=== PATIENT | female | born 1985 | race Caucasian/White ===

== ENCOUNTER → 2019-06-05 | Outpatient (CLI) | payer BC ==
[~2019-06-05] MED LIST: GADOBENATE DIMEGLUMINE 1 ML IV ONE; SODIUM CHLORIDE 0.9% 50ML 50 ML ONE
--- NOTE | 2019-06-05 14:51 | Diagnostic Imaging Report ---
MRI BRAIN WOW HISTORY: Pituitary tumor, prolactinoma COMPARISON: None available. TECHNIQUE: Multiplanar, multisequence MRI of the brain (including diffusion-weighted imaging) and pituitary gland was performed before and after the administration of intravenous contrast. Dynamic coronal T1 weighted images through the sella were obtained. DISCUSSION: Susceptibility artifacts from the oral cavity obscure some details. Postsurgical changes related to transsphenoidal resection are present. Mild to moderate T2 hyperintense sphenoid sinus mucosal thickening is present, eccentric to the right. The sella is otherwise preserved. The posterior pituitary T1 bright spot is not clearly identified. The pituitary gland is otherwise grossly normal in size and morphology. No definite focal sellar or suprasellar lesions are seen. The pituitary stalk is not deviated. The optic chiasm is preserved. The cavernous sinuses are normal in size and enhance symmetrically. Meckel's caves are clear. The cavernous internal carotid artery flow voids are preserved. Additional findings: T2 hyperintense right ethmoid air cell and right maxillary sinus mucosal thickening is partially imaged. IMPRESSION: 1. Postsurgical changes related to transsphenoidal resection. Nonspecific T2 hyperintense sphenoid sinus mucosal thickening, eccentric to the right. 2. Otherwise, no definite focal sellar or suprasellar lesion is seen. Signed by: Dr. Luis Manuel Carmen M.D. on 06/05/2019 2:48 PM
== END ==
LOC: MRI 10:35
PROVIDERS: ATTEND Neurological Surgery
DX: D35.2 Benign neoplasm of pituitary gland (principal)
CPT/HCPCS: 70553; A9577

== ENCOUNTER 2019-10-15 10:33 | Inpatient (IN) | payer BC ==
[~2019-10-15] VITALS: Ht 154.9 cm; Wt 60.0 kg
[2019-10-15] MEDS ORDERED: SODIUM CHLORIDE 0.9% 1000ML 1,000 ML IV STA (10:36)
[2019-10-15] MEDS ORDERED: MORPHINE SULFATE INJ 4 MG/ML INJ 1ML IV STA (10:36)
--- OUTSIDE RECORDS SUMMARY | 2019-10-15 10:37 | XMS REPORT ---
Author Author [facility] Address Unknown Phone Unavailable Care Team Providers Care Mining Helper Name Role Phone NICK ADAMS Unavailable Unavailable NICK SHAH Unavailable Unavailable Payers Payer Name Policy Type Policy Number Effective Date Expiration Date Problems This patient has no known problems. Allergies, Adverse Reactions, Alerts Allergy Name Allergy Type Status Severity Reaction(s) Onset Date Inactive Date Treating Clinician Comments Penicillins DA Active U 2016-02-27 00:00:00 morphine DA Active U 2016-02-27 00:00:00 meperidine DA Active U 2016-02-27 00:00:00 Medications This patient has no known medications. Results Test Description Test Time Test Comments Text Results Atomic Results Result Comments MRI BRAIN WOW 2019-06-05 14:40:00 [place] [address] Patient Name: KWADWO DICKINSON MR #: [id number] : 1985 Age/Sex: 34/F Req #: [id number] Adm Physician: Ordered by: NICK ADAMS MD Report #: [id number] Location: MRI Room/Bed: Procedure: [id number] MRI/MRI BRAIN WOW Exam Date: Exam Time: REPORT STATUS: Signed MRI BRAIN WOW HISTORY: Pituitary tumor, prolactinoma COMPARISON: None available. TECHNIQUE: Multiplanar, multisequence MRI of the brain (including diffusion-weighted imaging) and pituitary gland was performed before and after the administration of intravenous contrast. Dynamic coronal T1 weighted images through the sella were obtained. DISCUSSION: Susceptibility artifacts from the oral cavity obscure some details. Postsurgical changes related to transsphenoidal resection are present. Mild to moderate T2 hyperintense sphenoid sinus mucosal thickening is present, eccentric to the right. The sella is otherwise preserved. The posterior pituitary T1 bright spot is not clearly identified. The pituitary gland is otherwise grossly normal in size and morphology. No definite focal sellar or suprasellar lesions are seen. The pituitary stalk is not deviated. The optic chiasm is preserved. The cavernous sinuses are normal in size and enhance symmetrically. Meckel's caves are clear. The cavernous internal carotid artery flow voids are preserved. Additional findings: T2 hyperintense right ethmoid air cell and right maxillary sinus mucosal thickening is partially imaged. IMPRESSION: 1. Postsurgical changes related to transsphenoidal resection. Nonspecific T2 hyperintense sphenoid sinus mucosal thickening, eccentric to the right. 2. Otherwise, no definite focal sellar or suprasellar lesion is seen. Signed by: Dr. Luis Manuel Carmen M.D. on 06/05/2019 2:48 PM Dictated By: LUIS MANUEL CARMEN MD 1448 Transcribed By: CLIFFORD on 06/05/19 1448 COPY TO: NICK ADAMS MD TISSUE EXAM 2019-02-22 16:29:00 Surgical Pathology Report Case: [id number] Authorizing Provider: Nick Shah MD Collected: 02/20/2019 1647 Ord ering Location: [facility] PERIOPERATIVE Received: 02/20/2019 1653 SERVICES Pathologist: Pio Easley MD Specimens: A) - Tumor, Pituitary Tumor B) - Tumor, Inferior Pituitary Tumor C) - Tumor, Lateral Pituitary Tumor D) - Tumor, Far Lateral Pituitary Tumor A. PITUITARY GLAND, TRANSSPHENOIDAL HYPOPHYSECTOMY:PROLACTIN CELL ADENOMAADENOHYPOPHYSISB. PITUITARY GLAND, TRANSSPHENOIDAL HYPOPHYSECTOMY:PROLACTIN CELL ADENOMAADENOHYPOPHYSISC. PITUITARY GLAND, TRANSSPHENOIDAL HYPOPHYSECTOMY:PROLACTIN CELL ADENOMAADENOHYPOPHYSISNEUROHYPOPHYSISD. PITUITARY GLAND, TRANSSPHENOIDAL HYPOPHYSECTOMY:ADENOHYPOPHYSIS Signing Pathologist Direct Phone Line: [phone] signed by Pio Easley MD on 02/22/2019 at 4:29 PMEach specimen is examined in its entirety. No tumor is identified in the fourth specimen, and reticulin confirms a regular nesting pattern, typical of adenohypophysis. The first, second and third specimens contain adenoma, which is positive for prolactin immunoperoxidase stain and has irregular reticulin investment with attenuation. The third specimen also contains adenoma, but this was not present in the original frozen section. Reticulin stain of the third sp ecimen confirms that additional level sections contain an irregularly nested tumor with attenuated reticulin framework. 68177 x 4; 47084 x 4; 74516 x 4; 57931 x 2The case was received in multiple parts labeled with the patient's name, date of and accession number all of which match the information provided on the requisition slip.Part A received fresh for intraoperative consultation in a container labeled "pituitary tumor" is a 0.2 x 0.2 x 0.1 cm corado-pink hemorrhagic piece of tissue submitted entirely in cassette A1.Part B received fresh for intraoperative consultation in a container labeled "B. Inferior pituitary tumor" is a 0.2 x 0.2 x 0.1 cm piece of corado-pink hemorrhagic piece submitted entirely in cassette B1.Part C received fresh for intraoperative consultation in a container labeled "lateral pituitary tumor" are two pieces of tissue, which are corado-pink and hemorrhagic 0.2 x 0.2 x 0.2 cm and 0.1 x 0.1 x 0.1 cm, submitted entirely in cassette C1.Part D received fresh for intraoperati ve consultation in a container labeled "far lateral pituitary tumor" is a 0.3 x 0.2 x 0.2 cm piece of corado-pink hemorrhagic tissue, submitted entirely in cassette D1. EC/ewA1FS, FROZEN SECTION DIAGNOSIS, PITUITARY TUMOR: ,ADENOMA AND ADENOHYPOPHYSIS (KAH)B1FS FROZEN SECTION DIAGNOSIS, INFERIOR PITUITARY TUMOR: ADENOMA AND ADENOHYPOPHYSIS (KAH)C1FS, FROZEN SECTION DIAGNOSIS, LATERAL PITUITARY TUMOR: ADENOHYPOPHYSIS AND [id number], FROZEN SECTION DIAGNOSIS FAR LATERAL PITUITARY TUMOR; ADENOHYPOPHYSISPerformed on A-DThe interpretation of this case included the use of immunohistochemistry or special stains.Control Slides Examined: In-house known positive controls were evaluated along with the test tissue. These control slides run alongside of the patients sample show appropriate staining. Internal positive and negative controls when available are evaluated Immunohistochemistry technical testing was performed at [facility], Pathology Laboratory where it was developed and its performance characteristics were determined. It has not been cleared or approved by the U.S. Food and Drug Administration. The FDA has determined that such clearance or approval is not necessary. The test is used for clinical purposes. It should not be regarded as investigational or for research. This laboratory is certified under the Clinical Laboratory Improvement Amendments of 1988 (CLIA-88) as qualified to perform high complexity clinical laboratory testing. SODIUM 2019-02-21 10:51:00 SODIUM (BEAKER) (test hkxe=933) 142 meq/L 136-145 [id number] 05:15:00* Test Item Value Reference Range Comments PROLACTIN (BEAKER) (test geic=722) 1.39 ng/mL 5.18-26.53 CBC W/PLT COUNT & AUTO [id number] 04:48:00* Test Item Value Reference Range Comments WHITE BLOOD CELL COUNT (BEAKER) (test zouh=592) 14.6 K/ L 3.5-10.5 RED BLOOD CELL COUNT (BEAKER) (test leoq=555) 4.39 M/ L 3.93-5.22 HEMOGLOBIN (BEAKER) (test bcok=855) 13.5 GM/DL 11.2-15.7 HEMATOCRIT (BEAKER) (test tehq=038) 41.6 % 34.1-44.9 MEAN CORPUSCULAR VOLUME (BEAKER) (test crfe=133) 94.8 fL 79.4-94.8 MEAN CORPUSCULAR HEMOGLOBIN (BEAKER) (test pblp=695) 30.8 pg 25.6-32.2 MEAN CORPUSCULAR HEMOGLOBIN CONC (BEAKER) (test jehu=472) 32.5 GM/DL 32.2-35.5 RED CELL DISTRIBUTION WIDTH (BEAKER) (test kakp=654) 12.3 % 11.7-14.4 PLATELET COUNT (BEAKER) (test uwqg=282) 217 K/CU MM 150-450 MEAN PLATELET VOLUME (BEAKER) (test tkfw=691) 11.6 fL 9.4-12.3 NUCLEATED RED BLOOD CELLS (BEAKER) (test ffbl=879) 0 /100 WBC 0-0 NEUTROPHILS RELATIVE PERCENT (BEAKER) (test goen=991) 95 % LYMPHOCYTES RELATIVE PERCENT (BEAKER) (test ysck=548) 3 % MONOCYTES RELATIVE PERCENT (BEAKER) (test tgcp=930) 2 % EOSINOPHILS RELATIVE PERCENT (BEAKER) (test tmih=047) 0 % BASOPHILS RELATIVE PERCENT (BEAKER) (test wbom=354) 0 % NEUTROPHILS ABSOLUTE COUNT (BEAKER) (test ljmc=590) 13.76 K/ L 1.56-6.13 LYMPHOCYTES ABSOLUTE COUNT (BEAKER) (test kyfa=958) 0.47 K/ L 1.18-3.74 MONOCYTES ABSOLUTE COUNT (BEAKER) (test odys=523) 0.26 K/ L 0.24-0.36 EOSINOPHILS ABSOLUTE COUNT (BEAKER) (test acys=745) 0.00 K/ L 0.04-0.36 BASOPHILS ABSOLUTE COUNT (BEAKER) (test pjid=879) 0.01 K/ L 0.01-0.08 IMMATURE GRANULOCYTES-RELATIVE PERCENT (BEAKER) (test vspf=2155) 0 % 0-1 [id number] 04:41:00* Test Item Value Reference Range Comments CORTISOL, TOTAL (BEAKER) (test toil=4079) 52.5 ug/dL 3.7-19.4 BASIC METABOLIC [id number] 04:19:00* Test Item Value Reference Range Comments SODIUM (BEAKER) (test xrna=009) 144 meq/L 136-145 POTASSIUM (BEAKER) (test wams=726) 3.8 meq/L 3.5-5.1 CHLORIDE (BEAKER) (test lquh=484) 116 meq/L 98-107 CO2 (BEAKER) (test zdwo=965) 20 meq/L 22-29 BLOOD UREA NITROGEN (BEAKER) (test mknq=628) 5 mg/dL 7-21 CREATININE (BEAKER) (test tche=599) 0.59 mg/dL 0.57-1.25 GLUCOSE RANDOM (BEAKER) (test ewrj=316) 128 mg/dL 70-105 CALCIUM (BEAKER) (test djax=867) 8.2 mg/dL 8.4-10.2 EGFR (BEAKER) (test nmln=1378) 117 mL/min/1.73 sq m ESTIMATED GFR IS NOT ACCURATE CREATININE CLEARANCE IN PREDICTING GLOMERULAR FILTRATION RATE. ESTIMATED GFR IS NOT APPLICABLE FOR DIALYSIS PATIENTS. OSMOLALITY, [id number] 04:17:00* Test Item Value Reference Range Comments OSMOLALITY URINE (BEAKER) (test tibv=256) 179 mOsm/kg 40-1,400 SPECIFIC GRAVITY, [id number] 04:05:00* Test Item Value Reference Range Comments SPECIFIC GRAVITY UA (BEAKER) (test xuob=250) 1.003 1.001-1.035 BASIC METABOLIC [id number] 00:21:00* Test Item Value Reference Range Comments SODIUM (BEAKER) (test onox=762) 140 meq/L 136-145 POTASSIUM (BEAKER) (test riet=394) 3.7 meq/L 3.5-5.1 CHLORIDE (BEAKER) (test uovv=016) 115 meq/L 98-107 CO2 (BEAKER) (test bchv=421) 17 meq/L 22-29 BLOOD UREA NITROGEN (BEAKER) (test feas=670) 7 mg/dL 7-21 CREATININE (BEAKER) (test yxhz=131) 0.62 mg/dL 0.57-1.25 GLUCOSE RANDOM (BEAKER) (test fykl=169) 134 mg/dL 70-105 CALCIUM (BEAKER) (test qqyj=733) 7.5 mg/dL 8.4-10.2 EGFR (BEAKER) (test kjwu=5003) 110 mL/min/1.73 sq m ESTIMATED GFR IS NOT ACCURATE CREATININE CLEARANCE IN PREDICTING GLOMERULAR FILTRATION RATE. ESTIMATED GFR IS NOT APPLICABLE FOR DIALYSIS PATIENTS. URINALYSIS W/ [id number] 09:41:00* Test Item Value Reference Range Comments COLOR (BEAKER) (test ozfi=927) Yellow CLARITY (BEAKER) (test nmkq=540) Clear SPECIFIC GRAVITY UA (BEAKER) (test agci=682) 1.018 1.001-1.035 PH UA (BEAKER) (test yxcx=909) 5.5 5.0-8.0 PROTEIN UA (BEAKER) (test bluq=614) 20 mg/dL Negative GLUCOSE UA (BEAKER) (test yain=055) Negative Negative KETONES UA (BEAKER) (test phav=487) 10 mg/dL Negative BILIRUBIN UA (BEAKER) (test nzwl=027) Negative Negative BLOOD UA (BEAKER) (test kmqs=155) Trace Negative NITRITE UA (BEAKER) (test pxeq=304) Negative Negative LEUKOCYTE ESTERASE UA (BEAKER) (test vhix=339) Trace Negative UROBILINOGEN UA (BEAKER) (test svyc=532) 0.2 mg/dL 0.2-1.0 RBC UA (BEAKER) (test cdvb=063) 1 /HPF WBC UA (BEAKER) (test yqwv=928) 3 /HPF BACTERIA (BEAKER) (test oxxb=790) Occasional MUCUS (BEAKER) (test okla=7552) Moderate SQUAMOUS EPITHELIAL (BEAKER) (test pmzj=124) 4 /HPF SOURCE(BEAKER) (test ubdb=8723) BASIC METABOLIC [id number] 09:30:00* Test Item Value Reference Range Comments SODIUM (BEAKER) (test bauw=982) 138 meq/L 136-145 POTASSIUM (BEAKER) (test hjso=244) 3.8 meq/L 3.5-5.1 Specimen slightly hemolyzed CHLORIDE (BEAKER) (test ektd=070) 108 meq/L 98-107 CO2 (BEAKER) (test twit=048) 20 meq/L 22-29 BLOOD UREA NITROGEN (BEAKER) (test rpha=592) 9 mg/dL 7-21 CREATININE (BEAKER) (test zgrw=181) 0.57 mg/dL 0.57-1.25 Specimen slightly hemolyzed GLUCOSE RANDOM (BEAKER) (test nzdf=192) 85 mg/dL 70-105 CALCIUM (BEAKER) (test qqdq=194) 9.0 mg/dL 8.4-10.2 EGFR (BEAKER) (test pgck=4708) 121 mL/min/1.73 sq m ESTIMATED GFR IS NOT ACCURATE CREATININE CLEARANCE IN PREDICTING GLOMERULAR FILTRATION RATE. ESTIMATED GFR IS NOT APPLICABLE FOR DIALYSIS PATIENTS. CBC W/PLT COUNT & AUTO [id number] 09:22:00* Test Item Value Reference Range Comments WHITE BLOOD CELL COUNT (BEAKER) (test pbcg=071) 7.7 K/ L 3.5-10.5 RED BLOOD CELL COUNT (BEAKER) (test mjht=681) 4.48 M/ L 3.93-5.22 HEMOGLOBIN (BEAKER) (test qpqz=680) 13.8 GM/DL 11.2-15.7 HEMATOCRIT (BEAKER) (test klff=653) 41.6 % 34.1-44.9 MEAN CORPUSCULAR VOLUME (BEAKER) (test xtua=625) 92.9 fL 79.4-94.8 MEAN CORPUSCULAR HEMOGLOBIN (BEAKER) (test mngt=316) 30.8 pg 25.6-32.2 MEAN CORPUSCULAR HEMOGLOBIN CONC (BEAKER) (test xbqk=438) 33.2 GM/DL 32.2-35.5 RED CELL DISTRIBUTION WIDTH (BEAKER) (test clzx=015) 12.1 % 11.7-14.4 PLATELET COUNT (BEAKER) (test lmuc=883) 218 K/CU MM 150-450 MEAN PLATELET VOLUME (BEAKER) (test bwvg=620) 11.8 fL 9.4-12.3 NUCLEATED RED BLOOD CELLS (BEAKER) (test nopo=151) 0 /100 WBC 0-0 NEUTROPHILS RELATIVE PERCENT (BEAKER) (test rdon=657) 53 % LYMPHOCYTES RELATIVE PERCENT (BEAKER) (test vkzu=855) 29 % MONOCYTES RELATIVE PERCENT (BEAKER) (test fnzk=279) 7 % EOSINOPHILS RELATIVE PERCENT (BEAKER) (test dsuw=840) 9 % BASOPHILS RELATIVE PERCENT (BEAKER) (test abxz=930) 1 % NEUTROPHILS ABSOLUTE COUNT (BEAKER) (test hkit=582) 4.12 K/ L 1.56-6.13 LYMPHOCYTES ABSOLUTE COUNT (BEAKER) (test iikf=194) 2.26 K/ L 1.18-3.74 MONOCYTES ABSOLUTE COUNT (BEAKER) (test lbyt=021) 0.54 K/ L 0.24-0.36 EOSINOPHILS ABSOLUTE COUNT (BEAKER) (test zjml=761) 0.70 K/ L 0.04-0.36 BASOPHILS ABSOLUTE COUNT (BEAKER) (test cdzx=514) 0.07 K/ L 0.01-0.08 IMMATURE GRANULOCYTES-RELATIVE PERCENT (BEAKER) (test jtzs=7761) 0 % 0-1 [id number] 09:20:00* Test Item Value Reference Range Comments PARTIAL THROMBOPLASTIN TIME (BEAKER) (test ylad=704) 33.9 seconds 22.5-36.0 PROTHROMBIN TIME/[id number] 09:19:00* Test Item Value Reference Range Comments PROTIME (BEAKER) (test hfvo=167) 14.7 seconds 11.9-14.2 INR (BEAKER) (test winp=217) 1.2 <=5.9 Effective 11/23/2018: PT Reference Range ChangeNew: 11.9-14.2 Previous: 11.7-14. 7RECOMMENDED COUMADIN/WARFARIN INR THERAPY RANGESSTANDARD DOSE: 2.0-3.0 Include s: PROPHYLAXIS for venous thrombosis, systemic embolization; TREATMENT for venou s thrombosis and/or pulmonary embolus.HIGH RISK: Target INR is 2.5-3.5 for patie nts wiht mechanical heart valves.MR, BRAIN, [id number] 16:08:00FINAL REPORT MR, BRAIN, WITH \\T\\ WITHOUT CONTRAST INDICATION: PITUITARY MACROADENOMA TECHNIQUE: Multiplanar, multisequence MR imaging of the brain prior to and following intravenous administration of contrast. Dedicated thin slices of the sellar region in coronal and sagittal planes. Dynamic post contrast sellar imaging was performed. COMPARISON: Same day head CT FINDINGS: S ellar Region:In the right inferior aspect of the pituitary there is a T2 hyperin tense hypo-/nonenhancing lesion measuring approximately 4 mm. The sella turcica is not expanded. The infundibulum is midline. No mass effect upon the optic ashley sm. Cavernous sinuses are normal. Bilateral cavernous ICA flow voids are normal. Other Intracranial Structures: Susceptibility artifact in the anterior cranial fossa likely related to dental hardware. Scattered foci of T2 prolongation withi n the periventricular and subcortical white matter are a nonspecific finding and may be seen in normal individuals of this age group. No intracranial hemorrhage. No restricted diffusion to suggest acute infarct. No mass effect. No abnormal post-contrast enhancement. No hydrocephalus. Visualized intracranial flow voids are of normal course and caliber. Sinuses: Fluid within the right posterior eth moid air cells. Trace mastoid fluid. Orbits: Globes are intact. Calvarium \\T\\ sc alp: Unremarkable. IMPRESSION:There is a 4 mm cystic mass within the inferior ri ght aspect of the pituitary gland, likely microadenoma. No significant mass effe ct. Signed: Alissa Armijo Verified Date/Time: 02/15/2019 16:08:10 E lectronically signed by: ALISSA ARMIJO MD on 02/15/2019 04:[address], BRAIN, WITHOUT [id number] 13:43:00FINAL REPORT CT, BRAIN, WITHOUT CONTRAST INDICATION: Per chart review, patient has a history of a cystic 4 mm pituitary microadenoma. TECHNIQUE: Noncontrast axial imaging was obtained from the vertex to the skull base. Axial images were reconstructed using a bone algorithm. DOSE REDUCTION: Dose modulation, iterative reconstruction, and/or weight-based adjustment of the mA/kV was utilized to reduce the radiation dose to as low as reasonably achievable. COMPARISON: None. FINDINGS: [facility]acranial: [facility] for preoperative [facility]. No intracranial hemorrhage or abnormal extra-axial collection. No evidence of acute territorial infarct. No mass effect. No hydrocephalus. Osseous structures: No fracture. Sella turcica is unremarkable. Coronal suture is incompletely fused. Paranasal sinuses and mastoid air cells: Mucosal thickening within a right posterior ethmoid air cell and a large mucous retention cyst in the right maxillary sinus. The left sphenoid sinus is asymmetrically enlarged. Trace left mastoid effusion. Orbital contents: Globes are intact. IMPRESSION: Preoperative planning CT for known pituitary microadenoma.No acute intracranial abnormality. Signed: Alissa Armijo Verified Date/Time: 02/15/2019 13:43:50 El ectronically signed by: ALISSA ARMIJO MD on 02/15/2019 01:43 PM
--- OUTSIDE RECORDS SUMMARY | 2019-10-15 10:37 | XMS REPORT | Summary of Care ---
Author Author [facility] Organization [facility] Address Unknown Phone Unavailable Care Team Providers Care Physician General Internal Medicine Name Role Phone Gerardo Mauro MD PCP Reason for Visit * Reason Comments Other pituitary tumor Encounter Details Care Team Description Date Type Department Teressa Herrera MD [address] [place] [address] Other (pituitary tumor) 02/28/2019 Office Visit [facility] Endocrinology [address], [address] [place] [address] Allergies Comments Active Allergy Reactions Severity Noted Date Demerol 01/17/2019 Lecithin Nausea And High 02/15/2019 Vomiting Opioid Analgesics 01/17/2019 Penicillins 01/17/2019 documented as of this encounter (statuses as of 02/28/2019) Medications End Date Status Medication Sig Dispensed Refills Start Date Active CABERGOLINE OR Take by 0 mouth. Active Pseudoephedrine-Ibuprofen Take by 0 (ADVIL COLD/SINUS OR) mouth. Active diphenhydrAMINE HCl Take by 0 (BENADRYL ALLERGY OR) mouth. Active hydrocortisone (CORTEF) Take 1 Tab by 60 Tab 3 10 MG tablet mouth two 9 times daily. Take one tablet in the morning and one tablet in the afternoon. Active desmopressin (DDAVP) 0.1 Take 1 Tab by 10 Each 0 MG tablet mouth daily. 9 When instructed by your physician for increased urine output Active acetaminophen-codeine TK 1 T PO Q 6 0 (TYLENOL #3) 300-30 MG H PRN P 9 per tablet 02/28/2019 Active clindamycin (CLEOCIN) 300 Take 300 mg 0 MG capsule by mouth. 9 documented as of this encounter (statuses as of 02/28/2019) Active Problems Not on filedocumented as of this encounter (statuses as of 02/28/2019) Social History Date Tobacco Use Types Packs/Day Years Used Never Smoker Smokeless Tobacco: Never Used Drinks/Week oz/Week Comments Alcohol Use Not Currently Sex Assigned at Date Recorded Not on file Industry Job Start Date Occupation Not on file Not on file Not on file Travel End Travel History Travel Start No recent travel history available. documented as of this encounter Last Filed Vital Signs Not on filedocumented in this encounter Progress Notes * Teressa Herrera MD - 02/28/2019 3:45 PM CDT [facility] : 1985 Date of Service: 02/28/2019 Chief Complaint Patient presents with Other pituitary tumor There is no problem list on file for this patient. History of Present Illness: Ms. Pattie Jarvis is a pleasant 34 y.o. fema le here today for follow-up. Today: Patient was asked to fluid restrict to 1000 cc for POD 4 though 8 to avoi d hyponatremia. Adherent. No nausea today. Had bed headache frontal but improved since had ENT suction. Referred due to hyperprolactinemia and pituitary microadenoma on MRI brain, done in the context of infertility. Patient has past medical history of endometriosis and bilateral tubal occlusion s/p right salpingectomy and left hydrosalpinx re moval. Patient has been seeing Dr. Yancey since early 2017 for concerns for in fertility. During that work up thyroid function tests were done which were roberta l and prolactin was obtained which was 32.8 ng/dL. No further work-up regarding this was done at the time and she underwent left hydrosalpinx removal in Mar 17. In April 2018, prolactin level was repeated and was 36.2 ng/dL which prom pted an MRI of the brain which showed a 4 mm pituitary microadenoma. She was sta rted on cabergoline 0.5 mg weekly which was increased to 0.5mg biweekly in October 27. Prolactin level obtained on 10/31/18 prior to dose increase was 23.8 ng/dL. S he does have a lot of nausea on cab. Patient states that she has had intermitten t bilateral milky white breast discharge since 2008, only on expression. She has breast tenderness pre-menstrually. Her menarche was age 14, she has had regular mesntrual cycles lasting 3-5 days, occurring every 27-31 days. She denies ameno rrhea or in the past. She has taken ovulation kits and they have been positive for ovulation. She is not on any estrogen, antipsychotics. She was on v icodin and some herbal supplements last year but she stopped those when pituitar y adenoma was found. Patient states that she has had long-standing headaches which have been previous ly thought to be due to migraines. During the episodes she has sharp left fronto -temporal pain with dull occipital pain with worsening with light, sound or smel l. They last about 1 day and occur once a month. She reports left eye blurry vis ion in the mornings. Patient was started on levothyrxine [address] Yancey and was taking i t for 3 months but has been off it since the past 4 months. Review of Systems: General ROS: Negative for chills and fever. No cold or heat intolerance. Skin: No rash. Eyes: Right eye kind of blurry when it used to blurry ENT & Neck: Some left ear pain. Respiratory ROS: Negative for cough, shortness of breath. Cardiovascular: Negative for chest pain, dyspnea on exertion, and shortness of breath. Breast: Negative for galactorrhea, but has some clear discharge Gastrointestinal: Negative for abdominal pain, appetite loss, change in bowel habits, nausea/vomiting. No constipation (taking prunes) Genito-Urinary: Negative for nocturia, urinary frequency/urgency and polyuria . Started period two days after surgery. Musculoskeletal: Negative for gait disturbance and muscular weakness. Neurological ROS: lightheadedness if jumps up to quickly Hematologic: no easy bruising. Allergy/Immunology: None Past Medical History: Diagnosis Date Asthma Depression Endometriosis Migraine headache Thyroid disorder Past Surgical History: Procedure Laterality Date HX TONSILLECTOMY Family History Problem Relation Name Age of Onset Diabetes Maternal Grandmother Melanoma Maternal Grandfather There is no family history suggesting an inherited condition which would cause d evelopment of pituitary adenomas, including multiple endocrine neoplasia (MEN) type 1, Familial Inherited Pituitary Adenomas, or Chiang complex. Social History Tobacco Use Smoking status: Never Smoker Smokeless tobacco: Never Used Substance Use Topics Alcohol use: Not Currently Drug use: Not Currently Types: Marijuana Medications: Current Outpatient Medications: acetaminophen-codeine (TYLENOL #3) 300-30 MG per tablet, TK 1 T PO Q 6 H MD N P, Disp: , Rfl: 0 CABERGOLINE OR, Take by mouth., Disp: , Rfl: clindamycin (CLEOCIN) 300 MG capsule, Take 300 mg by mouth., Disp: , Rfl: desmopressin (DDAVP) 0.1 MG tablet, Take 1 Tab by mouth daily. When instruc patricia by your physician for increased urine output, Disp: 10 Each, Rfl: 0 diphenhydrAMINE HCl (BENADRYL ALLERGY OR), Take by mouth., Disp: , Rfl: hydrocortisone (CORTEF) 10 MG tablet, Take 1 Tab by mouth two times daily. Take one tablet in the morning and one tablet in the afternoon., Disp: 60 Tab, R fl: 3 Pseudoephedrine-Ibuprofen (ADVIL COLD/SINUS OR), Take by mouth., Disp: , R fl: Allergies: Allergies Allergen Reactions Lecithin Nausea And Vomiting Demerol Morphine And Related [Opioid Analgesics] Penicillins Physical Exam: Ht Readings from Last 3 Encounters: 02/28/19 5' 1" (1.549 m) 01/17/19 5' 1" (1.549 m) 01/17/19 5' 1" (1.549 m) Wt Readings from Last 1 Encounters: 02/28/19 145 lb (65.8 kg) BP Readings from Last 1 Encounters: 02/28/19 100/69 Pulse Readings from Last 1 Encounters: 02/28/19 63 There is no height or weight on file to calculate BMI. General: alert, well appearing, and in no distress. Skin: No skin tags or acanthosis; No ecchymoses, no acne or hirsutism. Eyes: No visual field deficit on confrontation or disconjugate gaze. Conjunct sara and sclera clear. Head and Neck: No frontal bossing, thickened lips, interdental spacing or pro gnathism. Lungs: Clear bilaterally to auscultation. No wheezes or crackles. Heart: Regular rate and rhythm Musculoskeletal: No deformity noted with normal posture and gait. Extremities: . No lower extremity edema Mental Status: Patient is alert and oriented to time, place, and self. Affect and attention are both normal. Speech and content of thought are normal. Compre hension is intact. Laboratory Studies Reviewed: see scanned media for outside labs. Results for PATTIE JARVIS ( ) as of 02/28/2019 15:42 Ref. Range 01/17/2019 12:36 ACTH Latest Ref Range: 7.2 - 63.3 PG/ML 8.4 CORTISOL TOTAL Latest Ref Range: SEE BELOW UG/DL 4.9 DHEA-S Latest Ref Range: 99 - 340 UG/DL 200 LUTEINIZING HORMONE Latest Ref Range: SEE BELOW IU/L 14.7 FOLLICLE STIMULATING HORMONE Latest Ref Range: SEE BELOW IU/L 6.6 PROLACTIN Latest Ref Range: 5.0 - 37.0 NG/ML 14.4 GLUCOSE Latest Ref Range: 70 - 99 MG/DL 92 ESTRADIOL Latest Ref Range: SEE BELOW PG/ML 158.0 TSH REFLEX Latest Ref Range: 0.400 - 4.100 UIU/ML 2.920 FREE T4 Latest Ref Range: 0.80 - 1.90 NG/DL 1.00 THYROGLOBULIN ANTIBODY Latest Ref Range: <4 IU/ML <1 SOMATOMEDIN-C Latest Ref Range: 64 - 207 NG/ML 166 Prolactin (05/04/18): 36.2 ng/dL (4.8-23.3; non- range) Prolactin (10/15/17): 32.8 ng/dL TSH (10/15/2017): 3.48 Free T4 (10/15/2017): 1.16 . PITUITARY GLAND, TRANSSPHENOIDAL HYPOPHYSECTOMY: PROLACTIN CELL ADENOMA ADENOHYPOPHYSIS B. PITUITARY GLAND, TRANSSPHENOIDAL HYPOPHYSECTOMY: PROLACTIN CELL ADENOMA ADENOHYPOPHYSIS C. PITUITARY GLAND, TRANSSPHENOIDAL HYPOPHYSECTOMY: PROLACTIN CELL ADENOMA ADENOHYPOPHYSIS NEUROHYPOPHYSIS D. PITUITARY GLAND, TRANSSPHENOIDAL HYPOPHYSECTOMY: ADENOHYPOPHYSIS Signing Pathologist Direct Phone Line: [phone] Radiological Studies Reviewed: see scanned media for outside reports. MRI of the sella (05/27/2018): - 4mm microadenoma involving inferior right aspect of pituitary gland. Impression and Plan: Pattie Jarvis is a 34 y.o. female who present with a 4 mm pituitary micro adenoma and hyperprolactinemia, currently on cabergoline. It is interesting that she has had normal menstruation and ovulation despite the mild elevation of pro lactin. Her pathology samples confirm the prolactinoma. With regard to each zwcbwyipaold-huletjxft-wyqmnyb axis: 1) Gonadal [place]: Has regular menses and ovulation (last checked 2 months ago). L MP was Feb 22 2 days post-op. Prolactin today. - LH, FSH, estradiol, prolactin. 2) Thyroid [place]: Some clinical features of hypothyroidism.TSH, Free T4, Free T3. TSH was 3.48 previously, would ideally like it to be lower (~2.5) if desiring p regnancy. Last one 2.9 so will recheck today. - 3) Growth Hormone/IGF-1 [place]: No features of acromegaly. Post-op IGF-1 level pe nding today 4) Prolactin: Will obtain prolactin level today. Last dose of cabergoline was 2018 (0.5 mg biweekly). 5) Adrenal [place]: No features of Clayton's syndrome. No symptoms of adrenal insu fficiency. ACTH, cortisol, DHEAS will be obtained today (off of hydrocortisone for 24 hours). 6) Posterior Pituitary: No clinical evidence of diabetes insipidus. No symptoms of hyponatremia today. Will obtain BMP. Teressa Herrera BSc([facility]), , PhD, FRCP(C), FACE Compliance Nurse, [facility] Division of Diabetes, Endocrinology & Metabolism (Appointments, ) (Office, ; ) [facility] documented in this encounter Plan of Treatment Care Team Description Date Type Specialty Teressa Herrera MD [address] [place] [address] 05/30/2019 Office Visit Endocrinology Nick Shah MD [address] 9th [address] [place] [address] 05/30/2019 Office Visit Neurosurgery Order Schedule Name Type Priority Associated Diagnoses Ordered: 02/28/2019 ACTH Lab Routine Pituitary cyst Ordered: 02/28/2019 BASIC METABOLIC PANEL Lab Routine Pituitary cyst Ordered: 02/28/2019 CORTISOL Lab Routine Pituitary cyst Ordered: 02/28/2019 INSULIN LIKE GROWTH Lab Routine Pituitary cyst FACTOR(IGF-1) Ordered: 02/28/2019 T4 FREE Lab Routine Pituitary cyst Ordered: 02/28/2019 TSH Lab Routine Pituitary cyst Ordered: 02/28/2019 PROLACTIN Lab Routine Pituitary cyst Health Maintenance Due Date Last Done Comments TETANUS SHOT (ADULT) 01/29/2000 BMI FOLLOW UP PLAN 2003 HIV SCREENING 2003 CERVICAL CANCER SCREENING 2006 3 YEAR FOLLOW UP FLU VACCINE > 6 MONTHS 01/26/2019 documented as of this encounter Results Not on filedocumented in this encounter Visit Diagnoses Diagnosis Pituitary cyst - Primary Other disorders of the pituitary and other syndromes of diencephalohypophyseal origin documented in this encounter Insurance Type Payer Benefit Subscriber ID Effective Phone Address Plan / Dates Group PPO BLUE CROSS BLUE SHIELD OUT OF xxxxxxxxxxxx 2014- [facility] BCBS Present [id number] [facility] [id number] documented as of this encounter
--- OUTSIDE RECORDS SUMMARY | 2019-10-15 10:37 | XMS REPORT | Summary of Care ---
Author Author [facility] Organization [facility] Address Unknown Phone Unavailable Care Team Providers Care Colored Leather Setter Name Role Phone Gerardo Mauro MD PCP Reason for Visit * Reason Comments Post-op Follow-up sx: 02/20/19 Encounter Details Care Team Description Date Type Department Sonia Gamino V, ACCOUNTS RECEIVABLE ACCOUNTANT [address] [facility] [address]th [address] [place] [address] Post-op Follow-up (sx: 02/20/19) 02/28/2019 Office Visit [facility] Neurosurgery [address], [address] [place] [address] Allergies Comments Active Allergy Reactions Severity Noted Date Demerol 01/17/2019 Lecithin Nausea And High 02/15/2019 Vomiting Opioid Analgesics 01/17/2019 Penicillins 01/17/2019 documented as of this encounter (statuses as of 03/01/2019) Medications End Date Status Medication Sig Dispensed [...] H PRN P 9 per tablet 02/28/2019 clindamycin (CLEOCIN) 300 Take 300 mg 0 08/27/201 MG capsule by mouth. 9 documented as of this encounter (statuses as of 03/01/2019) Active Problems Not on filedocumented as of this encounter (statuses as of 03/01/2019) Social History Date Tobacco Use Types Packs/Day [...] of this encounter Last Filed Vital Signs Reading Time Taken Comments Vital Sign 100/69 02/28/2019 3:01 PM CDT Blood Pressure 63 02/28/2019 3:01 PM CDT Pulse - - Temperature 18 02/28/2019 3:01 PM CDT Respiratory Rate - - Oxygen Saturation - - Inhaled Oxygen Concentration 65.8 kg (145 lb) 02/28/2019 3:01 PM CDT Weight 154.9 cm (5' 1") 02/28/2019 3:01 PM CDT Height 27.4 02/28/2019 3:01 PM CDT Body Mass Index documented in this encounter Patient Instructions * Patient Instructions* Sonia Gamino NP - 02/28/2019 2:30 PM CDT We will see you back in 3 months with a new MRI. Your Body mass index is 27.4 kg/m. Body mass index (BMI) can help you see if your weight is raising your risk for h ealth problems. It uses a formula to compare how much you weigh with how tall yo u are. A BMI between 18.5 and 24.9 is considered healthy. A BMI between 25 and 2 9.9 is considered overweight. A BMI of 30 or higher is considered obese. If your BMI is in the normal range, it means that you have a lower risk for weig ht-related health problems. If your BMI is in the overweight or obese range, you may be at increased risk for weight-related health problems, such as high blood pressure, heart disease, stroke, arthritis or joint pain, and diabetes. BMI is just one measure of your risk for weight-related health problems. You may be at higher risk for health problems if you are not active, you eat an unhealt hy diet, or you drink too much alcohol or use tobacco products. Follow-up care is a pina part of your treatment and safety. Be sure to make and g o to all appointments, and call your doctor if you are having problems. It's als o a good idea to know your test results and keep a list of the medicines you jailene e. How can you care for yourself at home? Practice healthy eating habits. This includes eating plenty of fruits, vegeta bles, whole grains, lean protein, and low-fat dairy. Get at least 30 minutes of exercise 5 days a week or more. Brisk walking is a good choice. You also may want to do other activities, such as running, swimmin g, cycling, or playing tennis or team sports. Do not smoke. Smoking can increase your risk for health problems. If you need help quitting, talk to your doctor about stop-smoking programs and medicines. T hese can increase your chances of quitting for good. Limit alcohol Where can you learn more? Go to [email or web address] Go to the Search tab with the magnifying glass on the right side of [employer] home page. Enter S176 in the search box to learn more about "Body Mass Index: Care Instruct ions." documented in this encounter Progress Notes * Sonia Gamino NP - 02/28/2019 2:30 PM CDT REFERRING DOCTOR: Maddy Yancey MD REASON FOR VISIT: Post Operative visit. I had the pleasure of seeing Ms. Jarvis at the neurosurgery clinic. The patient is a 34 y.o. female who underwent transsphenoidal resection of a medically resis tant prolactinoma on 02/20/2019. Patient is recovering very nicely. She did have intense headaches and nausea, which has improved now. She reports nasal congesti on. She has been on fluid restriction of 1000 ml from POD 4-8. Her pathology wa s consistent with prolactinoma. CURRENT MEDICATIONS: Current Outpatient Medications Medication Sig Dispense Refill acetaminophen-codeine (TYLENOL #3) 300-30 MG per tablet TK 1 T PO Q 6 H PRN P 0 CABERGOLINE OR Take by mouth. desmopressin (DDAVP) 0.1 MG tablet Take 1 Tab by mouth daily. When instructe d by your physician for increased urine output 10 Each 0 diphenhydrAMINE HCl (BENADRYL ALLERGY OR) Take by mouth. hydrocortisone (CORTEF) 10 MG tablet Take 1 Tab by mouth two times daily. Ta ke one tablet in the morning and one tablet in the afternoon. 60 Tab 3 Pseudoephedrine-Ibuprofen (ADVIL COLD/SINUS OR) Take by mouth. No current facility-administered medications for this visit. PHYSICAL EXAM: Vitals: 02/28/19 1501 BP: 100/69 BP Location: right arm Patient Position: Sitting Cuff Size: regular Pulse: 63 Resp: 18 Weight: 145 lb (65.8 kg) Height: 5' 1" (1.549 m) Patient is oriented to person, place and time. CN 2-12 are grossly intact bilaterally. MOTOR EXAM: UE Power Deltoids Triceps Biceps Supinator Pronator Wrist Extensor Wrist Flexor Right 5/5 5/5 5/5 5/5 5/5 5/5 5/5 Left 5/5 5/5 5/5 5/5 5/5 5/5 5/5 LE Power Hip Flexors Quadriceps Hamstrings Dorsiflexors Plantar Flexors EHL Right 5/5 5/5 5/5 5/5 5/5 5/5 Left 5/5 5/5 5/5 5/5 5/5 5/5 Sensory exam : Intact DTR: 2+ throughout. Gait: Steady DIAGNOSIS: Encounter Diagnosis and Orders ICD-10-CM 1. Prolactinoma D35.2 ASSESSMENT/PLAN: Ms. Pattie Jarvis is recovering very nicely. Her pathology results were d iscussed. We will follow up with her in 3 months with a new MRI. Patient was ask ed to contact us if she has any questions or concerns. documented in this encounter Plan of Treatment Care Team Description Date Type Specialty Teressa Herrera MD [address] [place], [place] [id number] 05/30/2019 Office Visit Endocrinology Nick Shah MD [address] [place] [address] 05/30/2019 Office Visit Neurosurgery Health Maintenance Due Date Last Done Comments TETANUS SHOT (ADULT) 01/29/2000 BMI FOLLOW UP PLAN 2003 HIV SCREENING 2003 CERVICAL CANCER SCREENING 2006 3 YEAR FOLLOW UP FLU VACCINE > 6 MONTHS 01/26/2019 documented as of this encounter Results Not on filedocumented in this encounter Visit Diagnoses Diagnosis Prolactinoma - Primary Benign neoplasm of pituitary gland and craniopharyngeal duct (pouch) documented in this encounter Insurance Type Payer Benefit Subscriber ID Effective Phone Address Plan / Dates Group PPO BLUE CROSS BLUE SHIELD OUT OF xxxxxxxxxxxx 2014- [facility] BCBS Present [id number] - PPO - [facility] [id number] documented as of this encounter
[2019-10-15] MEDS ORDERED: KETOROLAC TROMETHAMINE 30 MG/ML VIAL IV NR (10:45)
[2019-10-15] MEDS ORDERED: ONDANSETRON HCL INJ 2MG/ML 2ML 2 MG/ML VIAL IV NR (10:45)
[2019-10-15] MEDS ORDERED: DICYCLOMINE HCL 20 MG/2 ML VIAL IM ONE (10:45)
[2019-10-15] MEDS ORDERED: HALOPERIDOL LACTATE 5 MG/ML VIAL IV NR (11:00)
[2019-10-15] MEDS ORDERED: HALOPERIDOL 5 MG TAB PO NR (11:15)
[2019-10-15 11:33] LABS: BASOPHILS # (AUTO) 0.1 (0.0-0.1); BASOPHILS % 0.5 % (0.0-1.0); EOSINOPHILS # (AUTO) 0.4 (0.0-0.4); EOSINOPHILS % 3.5 % (0.0-6.0); HEMATOCRIT 45.9 % (34.2-44.1); LYMPHOCYTES # (AUTO) 1.7 (1.0-3.2); LYMPHOCYTES % 15.7 % (18.0-39.1); MEAN CORPUSCULAR HEMOGLOBIN 31.3 pg (28-32); MEAN CORPUSCULAR HGB CONC 34.9 g/dL (31-35); MEAN CORPUSCULAR VOLUME 89.8 fL (81-99); MONOCYTES # (AUTO) 0.7 (0.2-0.8); MONOCYTES % 6.5 % (4.4-11.3); NEUTROPHILS # (AUTO) 8.1 (2.1-6.9); NEUTROPHILS % 73.5 % (38.7-80.0); PLATELET COUNT 306 x10e3/uL (140-360); RED BLOOD COUNT 5.11 x10e6/uL (3.6-5.1); RED CELL DISTRIBUTION WIDTH 12.1 % (11.7-14.4)
[2019-10-15 11:52] LABS: ALANINE AMINOTRANSFERASE 37 IU/L (0-55); ALBUMIN 4.6 g/dL (3.5-5.0); ALBUMIN/GLOBULIN RATIO 1.4 (0.8-2.0); ALKALINE PHOSPHATASE 63 IU/L (40-150); ANION GAP 21.4 mmol/L (8-16); BLOOD UREA NITROGEN 8 mg/dL (7-26); BUN/CREATININE RATIO 11 (6-25); CARBON DIOXIDE 17 mmol/L (22-29); CHLORIDE 105 mmol/L (98-107); CREATINE KINASE 1973 IU/L (29-168); CREATININE, SERUM 0.73 mg/dL (0.57-1.11); EST GLOMERULAR FILTRATION RATE > 60 ML/MIN (60-); GLUCOSE 119 mg/dL (74-118); LIPASE 18 U/L (8-78); POTASSIUM 3.4 mmol/L (3.5-5.1); SODIUM 140 mmol/L (136-145)
[2019-10-15 12:01] LABS: AMPHETAMINES SCREEN,URINE NEGATIVE (NEGATIVE); BENZODIAZEPINES SCREEN,URINE NEGATIVE (NEGATIVE); CLARITY,URINE CLOUDY (CLEAR); COLOR,URINE RED (YELLOW); LEUKOCYTE ESTERASE ,URINE NEGATIVE (NEGATIVE); NITRITE,URINE NEGATIVE (NEGATIVE); PHENCYCLIDINE SCREEN,URINE NEGATIVE (NEGATIVE); PREGNANCY TEST, URINE NEGATIVE (NEGATIVE); PROTEIN,URINE DIPSTICK >=300 (NEGATIVE)
[2019-10-15 12:02] LABS: BILIRUBIN,URINE SMALL (NEGATIVE); KETONES,URINE 3+ (NEGATIVE); URINE UROBILINOGEN 0.2 mg/dL (0.2 - 1)
[2019-10-15] MEDS ORDERED: SODIUM CHLORIDE 0.9% 50ML 50 ML ONE (12:05)
[2019-10-15] MEDS ORDERED: IOPAMIDOL 370 MG/ML 200 ML INFUS..BTL INJ ONE (12:05)
[2019-10-15 12:07] LABS: WBC,URINE (MAN) 21-50 /HPF (0-5)
[2019-10-15 12:08] LABS: BACTERIA,URINE FEW /HPF; EPITHELIAL CELLS,URINE FEW /LPF; RBC,URINE >50 /HPF (0-5)
--- NOTE | 2019-10-15 12:39 | NUR ---
DR. ESCOBEDO AT BEDSIDE RE EVALUATING PATIENT
--- NOTE | 2019-10-15 12:59 | Diagnostic Imaging Report ---
EXAM: CT Abdomen and Pelvis WITH contrast INDICATION: Abdominal pain and vomiting. COMPARISON: None. TECHNIQUE: Abdomen and pelvis were scanned utilizing a multidetector helical scanner from the lung base to the pubic symphysis after administration of IV contrast. Coronal and sagittal reformations were obtained. Routine protocol was performed. Scan was performed when during portal venous phase. IV CONTRAST: 100 cc Isovue-[id number]. ORAL CONTRAST: Water RADIATION DOSE: Total DLP: 312.45 mGy*cm Estimated effective dose: (DLP x 0.015 x size factor) mSv COMPLICATIONS: None FINDINGS: LINES and TUBES: None. LOWER THORAX: Unremarkable HEPATOBILIARY: There is focal fatty infiltration adjacent to the falciform ligament. No focal hepatic lesions. No biliary ductal dilation. GALLBLADDER: No radio-opaque stones or sludge. No wall thickening. SPLEEN: No splenomegaly. PANCREAS: No focal masses or ductal dilatation. ADRENALS: No adrenal nodules KIDNEYS/URETERS: Kidneys enhance symmetrically. No hydronephrosis. No cystic or solid mass lesions. No stones. GI TRACT: No abnormal distention, wall thickening, or evidence of bowel obstruction. There are a few scattered diverticula in the sigmoid colon without evidence of diverticulitis. Appendix is normal. PELVIC ORGANS/BLADDER: 2.2 cm leiomyoma in the anterior mid uterine body on sagittal image 66. LYMPH NODES: No lymphadenopathy. VESSELS: Unremarkable. PERITONEUM / RETROPERITONEUM: No free air or fluid. BONES: Unremarkable. SOFT TISSUES: Unremarkable. IMPRESSION: 1. No acute abdominal pelvic abnormality. Signed by: Dr. Lian Ley M.D. on 10/15/2019 12:56 PM
[2019-10-15] MEDS: SODIUM CHLORIDE 0.9% 1000ML 1,000 ML IV SCH ×2 (13:23→21:39)
--- NOTE | 2019-10-15 14:31 | NUR ---
DR. ESCOBEDO AT BEDSIDE RE EVALUATING PATIENT AND UPDATING HER ON PLAN OF CARE
--- NOTE | 2019-10-15 14:56 | NUR ---
Received patient via stretcher from ER. AAOX4 to time, person, place, situation. NS 125ml/hr via right hand 20G. Respirations even and unlabored. Oriented to room. Instructed to use call light for assistance. Voiced understanding. Will continue to monitor.
[2019-10-15] MEDS ORDERED: BENADRYL25 M1 PO (15:30)
[2019-10-15] MEDS ORDERED: ZOFRAN4 MG PO (15:30)
[2019-10-15] MEDS ORDERED: FLONASE ALLERG9.9 ML (15:30)
[2019-10-15 15:33] VITALS: BP 115/62
[2019-10-15 15:35] VITALS: BP 115/62
[2019-10-15] MEDS ORDERED: POTASSIUM CHLORIDE 20 MEQ TAB CR PO NR (16:00)
[2019-10-15] MEDS: PROMETHAZINE 12.5MG/ NACL 0.9% 12.5 MG/50 ML BAG IV PRN (16:30)
[2019-10-15] MEDS: KETOROLAC TROMETHAMINE 30 MG/ML VIAL IV PRN (16:30)
[2019-10-15 16:39] VITALS: BP 115/62
--- NOTE | 2019-10-15 19:02 | NUR ---
Report given to oncoming nurse of patient's status. Resting in bed with eyes closed. Arousable to verbal stimuli. Respirations even and unlabored. Side rails upx2, call light within reach.
[2019-10-15 20:00] VITALS: BP 110/72
[2019-10-15] MEDS ORDERED: DICYCLOMINE HCL 20 MG/2 ML VIAL IM PRN (20:00)
[2019-10-15] MEDS: DIPHENHYDRAMINE HCL 25 MG CAP PO SCH (21:39)
[2019-10-15 23:20] VITALS: BP 110/72
[2019-10-15 23:45] VITALS: BP 113/69
[2019-10-16] VITALS (7 sets, daily range): BP systolic 101–130; BP diastolic 59–85
[2019-10-16] MEDS: PROMETHAZINE 12.5MG/ NACL 0.9% 12.5 MG/50 ML BAG IV PRN ×4 (00:07→17:26)
[2019-10-16] MEDS ORDERED: ACETAMINOPHEN 325 MG TAB PO PRN (05:30)
[2019-10-16] MEDS ORDERED: ZOLPIDEM TARTRATE 5 MG TAB PO PRN (05:30)
[2019-10-16] MEDS ORDERED: DOCUSATE SODIUM 100 MG CAP PO PRN (05:30)
--- NOTE | 2019-10-16 05:30 | NUR ---
H&P cc: fatigue HPI: 34yoF, PCP , developed acute rhabdomyolysis and UTI. Pt admits to marijuana use frequently. PMH: prolactinoma s/p resection 2019, endometriosis s/p surgery PSHX: transphenoid resection of prolactinoma Allergies; see emr FH/SH: ; no cigs; marijuana use periodically Meds; see MAR ROS: no cp/sob/dizziness/back pain/N/diarrhea/focal limb weakness/confusion v/s revd PE tired appearing anicteric ns1s2 mod bs soft nd; epigastrium tender. no e/t skin dry n. affect a&ox3; andrew labs/meds revd A/P: 34yoF Acute rhabdomyolysis- IVF Hypokalemia- replace Acute transaminitis- rehydrate and recheck UTI- IV abx SIRS- IVF Hypotension- IVF Epigastrium discomfort- start trial of pepcid. Prop; scd; pepcid DIspo: f/u labs Nancy Del Rio MD, PhD.
[2019-10-16 05:42] LABS: BASOPHILS # (AUTO) 0.1 (0.0-0.1); BASOPHILS % 0.6 % (0.0-1.0); EOSINOPHILS # (AUTO) 0.6 (0.0-0.4); EOSINOPHILS % 7.8 % (0.0-6.0); HEMATOCRIT 33.5 % (34.2-44.1); LYMPHOCYTES # (AUTO) 2.2 (1.0-3.2); LYMPHOCYTES % 28.1 % (18.0-39.1); MEAN CORPUSCULAR HEMOGLOBIN 30.3 pg (28-32); MEAN CORPUSCULAR HGB CONC 32.2 g/dL (31-35); MONOCYTES # (AUTO) 0.7 (0.2-0.8); MONOCYTES % 9.6 % (4.4-11.3); NEUTROPHILS # (AUTO) 4.1 (2.1-6.9); NEUTROPHILS % 53.6 % (38.7-80.0); PLATELET COUNT 188 x10e3/uL (140-360); RED BLOOD COUNT 3.57 x10e6/uL (3.6-5.1); RED CELL DISTRIBUTION WIDTH 12.4 % (11.7-14.4)
[2019-10-16] MEDS: SODIUM CHLORIDE 0.9% 1000ML 1,000 ML IV SCH ×4 (05:48→21:09)
[2019-10-16 05:50] LABS: HEMOGLOBIN 10.8 g/dL (12.0-16.0); MEAN CORPUSCULAR VOLUME 93.8 fL (81-99)
[2019-10-16 06:00] LABS: ALANINE AMINOTRANSFERASE 27 IU/L (0-55); ALBUMIN 3.1 g/dL (3.5-5.0); ALBUMIN/GLOBULIN RATIO 1.3 (0.8-2.0); ALKALINE PHOSPHATASE 38 IU/L (40-150); ANION GAP 9.6 mmol/L (8-16); BLOOD UREA NITROGEN 5 mg/dL (7-26); BUN/CREATININE RATIO 9 (6-25); CARBON DIOXIDE 20 mmol/L (22-29); CHLORIDE 113 mmol/L (98-107); CREATININE, SERUM 0.55 mg/dL (0.57-1.11); EST GLOMERULAR FILTRATION RATE > 60 ML/MIN (60-); GLUCOSE 73 mg/dL (74-118); POTASSIUM 3.6 mmol/L (3.5-5.1); SODIUM 139 mmol/L (136-145)
[2019-10-16 06:34] LABS: CREATINE KINASE MB 31.1 ng/mL (0-5.0)
[2019-10-16] MEDS: ONDANSETRON HCL INJ 2MG/ML 2ML 2 MG/ML VIAL IV PRN ×2 (07:25→14:35)
[2019-10-16] MEDS: AZTREONAM (AZACTAM) 0.5 GM in SODIUM CHLORIDE 0.9% 50ML 50 ML IV SCH ×2 (08:34→17:07)
[2019-10-16] MEDS: KETOROLAC TROMETHAMINE 30 MG/ML VIAL IV PRN ×2 (08:34→17:27)
[2019-10-16] MEDS ORDERED: AZTREONAM (AZACTAM) 0.5 GM in SODIUM CHLORIDE 0.9% 50ML 50 ML IV SCH (09:00)
[2019-10-16] MEDS ORDERED: CEFTRIAXONE SOD 1 GM/NS 50 ML 50 ML IV SCH (09:00)
--- NOTE | 2019-10-16 15:09 | NUR ---
Per Dr. Kelly, collect UA tomorrow am
[2019-10-16] MEDS: FAMOTIDINE 20 MG TAB PO SCH (17:07)
[2019-10-16] MEDS: DIPHENHYDRAMINE HCL 25 MG CAP PO SCH (21:09)
[2019-10-17] VITALS (7 sets, daily range): BP systolic 107–122; BP diastolic 63–77
[2019-10-17] MEDS: SODIUM CHLORIDE 0.9% 1000ML 1,000 ML IV SCH ×5 (01:12→22:16)
[2019-10-17] MEDS: AZTREONAM (AZACTAM) 0.5 GM in SODIUM CHLORIDE 0.9% 50ML 50 ML IV SCH ×3 (01:12→16:26)
--- NOTE | 2019-10-17 06:21 | NUR ---
IM- progress note O/N see MAR ROS: no cp/sob/dizziness/back pain/N/diarrhea/focal limb weakness/confusion v/s revd PE tired appearing anicteric ns1s2 mod bs soft nd; epigastrium tender. no e/t skin dry n. affect a&ox3; anderw labs/meds revd A/P: 34yoF Acute rhabdomyolysis- IVF Hypokalemia- replace Acute transaminitis- rehydrate and recheck UTI- IV abx SIRS- IVF Hypotension- IVF Epigastrium discomfort- start trial of pepcid. Prop; scd; pepcid DIspo: f/u labs 4-21 check labs. worse; give 3L saline now over 6 hrs, then 200cc per hour; Diarrhea- check c.diff,start flagyl; Nancy Grijalva MD, PhD.
--- NOTE | 2019-10-17 07:39 | NUR ---
CK level called to Dr Kelly. new orders received
[2019-10-17] MEDS: PROMETHAZINE 12.5MG/ NACL 0.9% 12.5 MG/50 ML BAG IV PRN ×2 (07:55→21:47)
[2019-10-17] MEDS ORDERED: SODIUM CHLORIDE 0.9% 1000ML 1,000 ML IV ONE ×3 (08:00→12:00)
--- NOTE | 2019-10-17 08:02 | NUR ---
UA collected and taken to lab
[2019-10-17 08:13] LABS: CLARITY,URINE CLEAR (CLEAR); COLOR,URINE YELLOW (YELLOW)
[2019-10-17 08:14] LABS: BILIRUBIN,URINE NEGATIVE (NEGATIVE); KETONES,URINE NEGATIVE (NEGATIVE); LEUKOCYTE ESTERASE ,URINE NEGATIVE (NEGATIVE); NITRITE,URINE NEGATIVE (NEGATIVE); PROTEIN,URINE DIPSTICK NEGATIVE (NEGATIVE); URINE UROBILINOGEN 0.2 mg/dL (0.2 - 1)
[2019-10-17] MEDS ORDERED: IBUPROFEN 400 MG TAB PO PRN (08:30)
[2019-10-17] MEDS: FAMOTIDINE 20 MG TAB PO SCH ×2 (08:57→17:37)
--- NOTE | 2019-10-17 11:00 | NUR ---
Pt. expressed no spiritual or emotional concerns at this time. Geriatric Nurse Practitioner provided hospitality and information on how to reach email specialist, if needed. No need to follow at this time. LEVI KUNZ Geriatric Nurse Practitioner Spiritual Care Department O: [phone]
[2019-10-17] MEDS: METRONIDAZOLE 500MG/NS 100ML 100 ML IV SCH ×2 (12:06→18:00)
[2019-10-17] MEDS: ONDANSETRON HCL INJ 2MG/ML 2ML 2 MG/ML VIAL IV PRN (12:07)
--- NOTE | 2019-10-17 13:23 | NUR ---
RD Recommendation for Physician: - When feasible, ADAT to goal of GI Soft Plan of Care: RD following, monitoring for tolerance and adequacy Nutrition reason for involvement: Nutrition risk trigger Primary Diagnose(s): dehydration, intractable N/V PMH: prolactinoma, endometriosis Ht: 61 in Wt: 139.06 lb BMI: 26.3 kg/m2 IBW: [address] Assessment: 10/16: 34 YOF admitted for intractable N/V and dehydration with acute rhabdomyolysis and UTI per MD notes. Pt seen 10/15, late entry as no H&P available in chart or meditech. Pt reports N/V for almost a week with very poor intake x 4 days RES HABILITATION ASSISTANT. Pt reports nausea and 2 episodes of emesis on 10/15. Pt reports UBW of 138#, no wt loss noted. Currently tolerating CL diet with 75-100% intake since admit. Pt with no questions or concerns at this time. Labs and meds reviewed. Will continue to monitor. Current Diet: Clear liquids Malnutrition Evaluation 10/17/19 The patient does not meet criteria for a specified degree of malnutrition at this time. Will re-evaluate at follow-up as appropriate. PO intake: moderate, <50% of meals for > 5 days Wt loss: not wt loss reported, UBW 138# Fat loss: none, ample skinfold thickness (observed 10/15) Muscle loss: none, shoulder round (observed 10/15) No edema, functional status- no changes reported Diet Education Needs Assessment: Diet education not indicated, pt on temporary/transitional diet. Diet tolerance: tolerating po Nutrition Care Level: low Signed: Meenaskhi Peralta RD, LD, [facility]
--- NOTE | 2019-10-17 15:20 | NUR ---
IV came out. Attempted to start new IV without success. shell core and molding supervisor to try with ultrasound machine
--- NOTE | 2019-10-17 16:55 | NUR ---
New IV that was recently placed has infiltrated. Dr Kelly notified. Order received for PICC line or midline placement
--- NOTE | 2019-10-17 19:14 | NUR ---
Dr. Kelly notified of CK level 5837. New orders received
[2019-10-17] MEDS ORDERED: LOPERAMIDE HCL 2 MG CAP PO ONE (19:15)
[2019-10-17] MEDS ORDERED: LOPERAMIDE HCL 2 MG CAP PO PRN (19:15)
[2019-10-17] MEDS: DIPHENHYDRAMINE HCL 25 MG CAP PO SCH (21:36)
[2019-10-18] VITALS: BP 117/77
--- NOTE | 2019-10-18 00:22 | NUR ---
Emesis x 1 bile in color measuring 120cc . Promethazine will be administered as ordered for nausea. Patient is noted taking in large quantities of fluids in different types from soda to juice to water and ice. Patient continues to receive NS 0.9% at 200cc/hr . Will continue to monitor the patient
[2019-10-18] MEDS: METRONIDAZOLE 500MG/NS 100ML 100 ML IV SCH ×3 (03:06→17:01)
[2019-10-18] MEDS: SODIUM CHLORIDE 0.9% 1000ML 1,000 ML IV SCH ×5 (03:06→21:30)
[2019-10-18] MEDS: PROMETHAZINE 12.5MG/ NACL 0.9% 12.5 MG/50 ML BAG IV PRN ×3 (05:14→21:30)
[2019-10-18 05:45] LABS: BASOPHILS # (AUTO) 0.1 (0.0-0.1); BASOPHILS % 0.9 % (0.0-1.0); EOSINOPHILS # (AUTO) 0.7 (0.0-0.4); EOSINOPHILS % 10.9 % (0.0-6.0); HEMATOCRIT 37.7 % (34.2-44.1); HEMOGLOBIN 12.6 g/dL (12.0-16.0); LYMPHOCYTES # (AUTO) 1.8 (1.0-3.2); LYMPHOCYTES % 26.1 % (18.0-39.1); MEAN CORPUSCULAR HEMOGLOBIN 31.3 pg (28-32); MEAN CORPUSCULAR HGB CONC 33.4 g/dL (31-35); MEAN CORPUSCULAR VOLUME 93.8 fL (81-99); MONOCYTES # (AUTO) 0.5 (0.2-0.8); MONOCYTES % 7.5 % (4.4-11.3); NEUTROPHILS # (AUTO) 3.7 (2.1-6.9); NEUTROPHILS % 54.5 % (38.7-80.0); PLATELET COUNT 212 x10e3/uL (140-360); RED BLOOD COUNT 4.02 x10e6/uL (3.6-5.1); RED CELL DISTRIBUTION WIDTH 12.5 % (11.7-14.4)
[2019-10-18 06:12] LABS: ANION GAP 13.1 mmol/L (8-16); BLOOD UREA NITROGEN < 5 mg/dL (7-26); CALCIUM 9.2 mg/dL (8.4-10.2); CARBON DIOXIDE 23 mmol/L (22-29); CHLORIDE 111 mmol/L (98-107); CREATINE KINASE 2902 IU/L (29-168); CREATININE, SERUM 0.59 mg/dL (0.57-1.11); EST GLOMERULAR FILTRATION RATE > 60 ML/MIN (60-); GLUCOSE 64 mg/dL (74-118); POTASSIUM 3.1 mmol/L (3.5-5.1); SODIUM 144 mmol/L (136-145)
[2019-10-18 06:13] LABS: BUN/CREATININE RATIO 8 (6-25)
--- NOTE | 2019-10-18 06:25 | NUR ---
IM- progress note O/N see MAR ROS: no cp/sob/dizziness/back pain/N/diarrhea/focal limb weakness/confusion v/s revd PE tired appearing anicteric ns1s2 mod bs soft nd; epigastrium tender. no e/t skin dry n. affect a&ox3; andrew labs/meds revd A/P: 34yoF Acute rhabdomyolysis- IVF Hypokalemia- replace Acute transaminitis- rehydrate and recheck UTI- IV abx SIRS- IVF Hypotension- IVF Epigastrium discomfort- start trial of pepcid. Prop; scd; pepcid DIspo: f/u labs 4- check labs. worse; give 3L saline now over 6 hrs, then 200cc per hour; Diarrhea- check c.diff,start flagyl; 10-17 Hypokalemia- replace; cont fluids; C.diff negative; use imodium for diarrhea; f/u CPK. Nancy Grijalva MD, PhD.
[2019-10-18] MEDS ORDERED: POTASSIUM CHLORIDE 20 MEQ TAB CR PO SCH (06:45)
--- NOTE | 2019-10-18 07:05 | NUR ---
RCD PT AT BED PT IS ALERT AND ORIENTED RESTING ON BED IV PATENT AND RUNNING 200 ML /HR BED LOW AND LOCKED CALL LIGHT IN REACH
[2019-10-18] MEDS: FAMOTIDINE 20 MG TAB PO SCH ×2 (07:30→16:30)
[2019-10-18] MEDS: ONDANSETRON HCL INJ 2MG/ML 2ML 2 MG/ML VIAL IV PRN ×2 (07:55→15:42)
[2019-10-18 08:01] VITALS: BP 147/93
[2019-10-18 08:33] VITALS: BP 147/93
[2019-10-18] MEDS: LIDOCAINE 4% PATCH TP SCH (09:15)
[2019-10-18] MEDS: MELOXICAM 7.5 MG TAB PO SCH (09:15)
[2019-10-18] MEDS ORDERED: POTASSIUM CHLORIDE 20MEQ/100ML 100 ML IV ONE (09:30)
[2019-10-18 12:03] VITALS: BP 126/90
[2019-10-18 16:01] VITALS: BP 131/81
--- NOTE | 2019-10-18 18:41 | NUR ---
PT RESTING ON BED BED SIDE REPORT GIVEN TO ONCOMING NURSE
[2019-10-18 20:00] VITALS: BP 101/66
[2019-10-18] MEDS: DIPHENHYDRAMINE HCL 25 MG CAP PO SCH (21:30)
[2019-10-19] VITALS (9 sets, daily range): BP systolic 110–138; BP diastolic 68–91
[2019-10-19] MEDS: METRONIDAZOLE 500MG/NS 100ML 100 ML IV SCH ×3 (01:41→17:33)
--- NOTE | 2019-10-19 03:15 | NUR ---
Patient is in room awake . Emesis x 1 green bile in color 100cc . Patient is noted to be over hydrating with several pitchers of water per shift and juice and soda. She is also receiving 0.9% NS with no additives at 200cc/hr . States she continues to have abdominal pain and nausea and emesis which is not projectile and is usually below 200cc in measurement. MD to be notified about the hydration. Patient did have a K+ of 3.1 10/18/19 and was replaced per day shift report. Patient started Meloxicam scheduled for pain. Still says that does not work. She mentioned that she smokes "Pot" daily but has quit as of Wednesday prior to admission. She wonders if these are withdrawals? Advised would have to discuss with MD regarding that situation. Patient voices no other concerns and was advised not to overhydrate as this can lead to water intoxication which may be evidenced by symptoms as discussed with patient. For now, patient verbalizes understanding and will try and follow instructions. Will continue with IV hydration and clear liquid diet as ordered until further orders
[2019-10-19] MEDS: SODIUM CHLORIDE 0.9% 1000ML 1,000 ML IV SCH ×4 (04:09→19:02)
[2019-10-19 05:52] LABS: BASOPHILS % 0.4 % (0.0-1.0); EOSINOPHILS # (AUTO) 0.4 (0.0-0.4); EOSINOPHILS % 4.6 % (0.0-6.0); HEMATOCRIT 33.3 % (34.2-44.1); HEMOGLOBIN 11.5 g/dL (12.0-16.0); LYMPHOCYTES % 25.3 % (18.0-39.1); MEAN CORPUSCULAR HEMOGLOBIN 31.5 pg (28-32); MEAN CORPUSCULAR HGB CONC 34.5 g/dL (31-35); MEAN CORPUSCULAR VOLUME 91.2 fL (81-99); MONOCYTES # (AUTO) 0.8 (0.2-0.8); MONOCYTES % 9.5 % (4.4-11.3); NEUTROPHILS # (AUTO) 4.8 (2.1-6.9); NEUTROPHILS % 59.9 % (38.7-80.0); PLATELET COUNT 220 x10e3/uL (140-360); RED BLOOD COUNT 3.65 x10e6/uL (3.6-5.1); RED CELL DISTRIBUTION WIDTH 12.6 % (11.7-14.4)
[2019-10-19 06:17] LABS: ANION GAP 9.1 mmol/L (8-16); CALCIUM 8.3 mg/dL (8.4-10.2); CARBON DIOXIDE 22 mmol/L (22-29); CHLORIDE 113 mmol/L (98-107); CREATINE KINASE 2395 IU/L (29-168); CREATININE, SERUM 0.58 mg/dL (0.57-1.11); EST GLOMERULAR FILTRATION RATE > 60 ML/MIN (60-); GLUCOSE 85 mg/dL (74-118); POTASSIUM 3.1 mmol/L (3.5-5.1); SODIUM 141 mmol/L (136-145)
[2019-10-19 06:19] LABS: BLOOD UREA NITROGEN < 5 mg/dL (7-26); BUN/CREATININE RATIO 9 (6-25)
[2019-10-19] MEDS: FAMOTIDINE 20 MG TAB PO SCH ×2 (07:30→16:30)
[2019-10-19] MEDS: ONDANSETRON HCL INJ 2MG/ML 2ML 2 MG/ML VIAL IV PRN ×2 (08:33→18:00)
--- NOTE | 2019-10-19 08:57 | NUR ---
IM- progress note O/N see MAR ROS: no cp/sob/dizziness/back pain/N/diarrhea/focal limb weakness/confusion v/s revd PE tired appearing anicteric ns1s2 mod bs soft nd; epigastrium tender. no e/t skin dry n. affect a&ox3; andrew labs/meds revd A/P: 34yoF Acute rhabdomyolysis- IVF Hypokalemia- replace Acute transaminitis- rehydrate and recheck UTI- IV abx SIRS- IVF Hypotension- IVF Epigastrium discomfort- start trial of pepcid. Prop; scd; pepcid DIspo: f/u labs 4- check labs. worse; give 3L saline now over 6 hrs, then 200cc per hour; Diarrhea- check c.diff,start flagyl; 4- Hypokalemia- replace; cont fluids; C.diff negative; use imodium for diarrhea; f/u CPK. 4-23 CPK improving; advance diet; dilaudid for pain; CPK should improve now that diarrhea has resolved with imodium. If worse, consult nephrology. Pt may have enzyme defect. Nancy Grijalva MD, PhD.
[2019-10-19] MEDS ORDERED: POTASSIUM CHLORIDE 20MEQ/100ML 100 ML IV ONE (09:00)
[2019-10-19] MEDS: LIDOCAINE 4% PATCH TP SCH (09:00)
[2019-10-19] MEDS: MELOXICAM 7.5 MG TAB PO SCH (09:00)
[2019-10-19] MEDS: HYDROMORPHONE 1MG/1ML INJ IV PRN ×4 (09:21→22:30)
--- NOTE | 2019-10-19 19:20 | NUR ---
PT RESTING ON BED BED SIDE REPORT GIVEN TO ONCOMING NURSE
[2019-10-19] MEDS: DIPHENHYDRAMINE HCL 25 MG CAP PO SCH (21:52)
[2019-10-20] VITALS (7 sets, daily range): BP systolic 108–148; BP diastolic 74–92
[2019-10-20] MEDS: SODIUM CHLORIDE 0.9% 1000ML 1,000 ML IV SCH ×5 (00:02→19:26)
[2019-10-20] MEDS: METRONIDAZOLE 500MG/NS 100ML 100 ML IV SCH ×3 (02:34→16:34)
[2019-10-20] MEDS: HYDROMORPHONE 1MG/1ML INJ IV PRN ×4 (02:57→19:55)
--- NOTE | 2019-10-20 07:00 | NUR ---
patient endorsed to next shift for continuity of care.
[2019-10-20] MEDS: LIDOCAINE 4% PATCH TP SCH (09:00)
[2019-10-20] MEDS: MELOXICAM 7.5 MG TAB PO SCH (09:00)
--- NOTE | 2019-10-20 09:06 | NUR ---
IM- progress note O/N see MAR ROS: no cp/sob/dizziness/back pain/N/diarrhea/focal limb weakness/confusion v/s revd PE tired appearing anicteric ns1s2 mod bs soft nd; epigastrium tender. no e/t skin dry n. affect a&ox3; andrew labs/meds revd A/P: 34yoF Acute rhabdomyolysis- IVF Hypokalemia- replace Acute transaminitis- rehydrate and recheck UTI- IV abx SIRS- IVF Hypotension- IVF Epigastrium discomfort- start trial of pepcid. Prop; scd; pepcid DIspo: f/u labs - check labs. worse; give 3L saline now over 6 hrs, then 200cc per hour; Diarrhea- check c.diff,start flagyl; 10-17 Hypokalemia- replace; cont fluids; C.diff negative; use imodium for diarrhea; f/u CPK. 10-18 CPK improving; advance diet; dilaudid for pain; CPK should improve now that diarrhea has resolved with imodium. If worse, consult nephrology. Pt may have enzyme defect. 10-19 check K and CPK at 4pm; levels improving; cont fluids; Nancy Grijalva MD, PhD.
[2019-10-20] MEDS: FAMOTIDINE 20 MG TAB PO SCH ×2 (09:14→16:34)
[2019-10-20] MEDS: PROMETHAZINE 12.5MG/ NACL 0.9% 12.5 MG/50 ML BAG IV PRN (14:00)
--- NOTE | 2019-10-20 15:05 | NUR ---
Visit made by Sybil Garcia. Nuclear Power Reactor Operator provided pastoral presence, prayer, hospitality, and supportive listening. Nuclear Power Reactor Operator informed pt/family of the scope of Consulting [employer]st Services and availability. LEVI Daleylain Spiritual Care Department O: [phone]
[2019-10-20] MEDS: POTASSIUM CHLORIDE 20 MEQ TAB CR PO SCH (16:34)
[2019-10-20 16:36] LABS: ANION GAP 12.2 mmol/L (8-16); BLOOD UREA NITROGEN < 5 mg/dL (7-26); CALCIUM 9.1 mg/dL (8.4-10.2); CARBON DIOXIDE 26 mmol/L (22-29); CHLORIDE 109 mmol/L (98-107); CREATININE, SERUM 0.58 mg/dL (0.57-1.11); EST GLOMERULAR FILTRATION RATE > 60 ML/MIN (60-); GLUCOSE 77 mg/dL (74-118); POTASSIUM 3.2 mmol/L (3.5-5.1); SODIUM 144 mmol/L (136-145)
[2019-10-20 16:38] LABS: POTASSIUM 3.1 mmol/L (3.5-5.1)
[2019-10-20 17:00] LABS: BUN/CREATININE RATIO 9 (6-25)
[2019-10-20] MEDS: ONDANSETRON HCL INJ 2MG/ML 2ML 2 MG/ML VIAL IV PRN (17:00)
[2019-10-20 17:19] LABS: MAGNESIUM 1.8 MG/DL (1.3-2.1)
[2019-10-20 18:13] LABS: BILIRUBIN,URINE NEGATIVE (NEGATIVE); CLARITY,URINE SL CLOUDY (CLEAR); COLOR,URINE YELLOW (YELLOW); KETONES,URINE 1+ (NEGATIVE); LEUKOCYTE ESTERASE ,URINE NEGATIVE (NEGATIVE); NITRITE,URINE NEGATIVE (NEGATIVE); PROTEIN,URINE DIPSTICK NEGATIVE (NEGATIVE); URINE UROBILINOGEN 0.2 mg/dL (0.2 - 1)
[2019-10-20 18:47] LABS: EPITHELIAL CELLS,URINE RARE /LPF; WBC,URINE (MAN) 0-5 /HPF (0-5)
[2019-10-20] MEDS: DIPHENHYDRAMINE HCL 25 MG CAP PO SCH (19:27)
--- NOTE | 2019-10-20 19:43 | NUR ---
BSSR RECEIVED FROM GUANAKO RN, PT AOX4, SITTING IN BED WITH COMPUTER IN FRONT OF HER, PT STATES "I DONT WANT DOCTOR AGATHA, HE WAS GIVING ME STEROIDS AND IT KILLS MY KIDNEYS", PER THE GUANAKO RN, ENDORSED FOR ME TO CONTACT MD SNIDER PER HER REQUEST, ROCK DUSTER AND CHARGE NURSE WAS MADE AWARE , PT REQUESTING PRN PAIN AND NAUSEA MEDICATION AT THIS TIME, REQUEST CARRIED OUT
--- NOTE | 2019-10-20 20:09 | Consultation ---
DATE OF CONSULTATION: 10/20/2019 Nephrology Consultation REASON FOR CONSULTATION: 1. Possible rhabdomyolysis. 2. Hypokalemia. HISTORY OF PRESENT ILLNESS: This is a 34-year-old white female, who uses marijuana regularly and was admitted to this hospital on October 16, 2019, with protracted vomiting and dehydration. Admission labs showed normal BUN and creatinine, but low serum potassium. Her CPK was elevated to around 20,000, which peaked at 29,000 and now seems to be trending downward. Urinalysis was dipstick positive for blood, but also had many red cells and white cells on the sediment. She is being empirically treated for a urinary tract infection. The patient has since been IV hydrated and is now much improved in terms of nausea and vomiting. Denies any diarrhea, dysuria, or gross hematuria. No recent trauma or seizure-like activity. She has had urinary tract infections several years ago, but none recently. No history of kidney stones. Labs yesterday showed a potassium of 3.1. PAST MEDICAL HISTORY: As above. SOCIAL HISTORY: Regular use of marijuana as noted above. MEDICATIONS: Current medications noted in AUG. Include IV metronidazole, p.o. meloxicam. REVIEW OF SYSTEMS: Negative, except as noted above in HPI. PHYSICAL EXAMINATION: VITAL SIGNS: Stable. Blood pressure 112/75. She is afebrile. Pulse 82 per minute, respirations 17 per minute, and pulse oximetry 100% on room air. SKIN: Somewhat decrease in turgor. No generalized lesions. HEENT: Normocephalic, atraumatic head. External ocular movement intact. No icterus. NECK: Supple without jugular venous distention. CHEST: Clear to auscultation bilaterally. CARDIOVASCULAR EXAM: Regular rate and rhythm without rub or gallop. ABDOMEN: Soft, mild nonspecific tenderness. EXTREMITIES: Without pitting edema or cyanosis. NEUROLOGIC: She is alert and oriented x3. No obvious focal deficit. LABORATORY DATA: Most recent chemistries are from yesterday, which have been noted above. I do not see a urine culture report. IMPRESSION: 1. Hypokalemia, secondary to low oral intake recently. 2. High CPKs with suspicion of rhabdomyolysis. Last urinalysis on the did show 3+ blood by dipstick, but no microscopy was done on that specimen. The CPK does appear to be trending down now. Apart from muscle breakdown, the possibility of some sort of enzymatic abnormality does exist. Her renal function is preserved. 3. Dehydration, secondary to poor oral intake, improved with IV fluids. RECOMMENDATIONS: 1. Continue to keep the patient hydrated with normal saline, while encouraging p.o. intake of fluids. 2. Continue to monitor daily renal function, electrolytes, and CPK. I will go ahead and order them for today. 3. Check magnesium level today, as low magnesium levels will contribute to hypokalemia. 4. Repeat urinalysis, to get updated picture. We will follow the patient and recommend as needed. Thank you for the opportunity to participate in her care. Brett Bello MD [facility]/MODL /[id number]
[2019-10-21] VITALS (8 sets, daily range): BP systolic 108–145; BP diastolic 60–93
[2019-10-21] MEDS: HYDROMORPHONE 1MG/1ML INJ IV PRN ×5 (00:55→22:25)
[2019-10-21] MEDS: SODIUM CHLORIDE 0.9% 1000ML 1,000 ML IV SCH ×5 (01:53→21:43)
[2019-10-21] MEDS: METRONIDAZOLE 500MG/NS 100ML 100 ML IV SCH ×3 (01:59→16:03)
[2019-10-21] MEDS: ONDANSETRON HCL INJ 2MG/ML 2ML 2 MG/ML VIAL IV PRN ×4 (01:59→18:19)
--- NOTE | 2019-10-21 03:00 | NUR ---
Patient is noted to be over hydrating with several CUPS of water and ice per shift, educated patient about overhydrating/fluid overload. She is also receiving 0.9% NS with no additives at 200cc/hr, tolerating well, one episode of emesis noted, skin warm dry
--- NOTE | 2019-10-21 06:56 | NUR ---
BSSR GIVEN TO DAYSHIFT RN, UPDATED TIME OF LAST DOSE OF EACH PRN MEDICATION, PATIENT RESTING COMFORTABLY IN BED, AOX4,AMBULATORY GAIT STEADY, IV RIGHT AC FLUSHES WELL, SMALL AMOUNT OF BLOOD NOTED AT INJECTION SITE NO LEAKING NOTED, BED IN LOWEST POSITION, CALL LIGHT WITHIN REACH
--- NOTE | 2019-10-21 07:59 | NUR ---
IM- progress note O/N see MAR ROS: no cp/sob/dizziness/back pain/N/diarrhea/focal limb weakness/confusion v/s revd PE tired appearing anicteric ns1s2 mod bs soft nd; epigastrium tender. no e/t skin dry n. affect a&ox3; andrew labs/meds revd A/P: 34yoF Acute rhabdomyolysis- IVF Hypokalemia- replace Acute transaminitis- rehydrate and recheck UTI- IV abx SIRS- IVF Hypotension- IVF Epigastrium discomfort- start trial of pepcid. Prop; scd; pepcid DIspo: f/u labs - check labs. worse; give 3L saline now over 6 hrs, then 200cc per hour; Diarrhea- check c.diff,start flagyl; 10-17 Hypokalemia- replace; cont fluids; C.diff negative; use imodium for diarrhea; f/u CPK. - CPK improving; advance diet; dilaudid for pain; CPK should improve now that diarrhea has resolved with imodium. If worse, consult nephrology. Pt may have enzyme defect. 10-19 check K and CPK at 4pm; levels improving; cont fluids; 10-20 check labs; d/c jelani Grijalva MD, PhD.
[2019-10-21] MEDS: POTASSIUM CHLORIDE 20 MEQ TAB CR PO SCH (08:45)
[2019-10-21] MEDS: FAMOTIDINE 20 MG TAB PO SCH ×2 (08:48→16:03)
[2019-10-21] MEDS: MELOXICAM 7.5 MG TAB PO SCH (09:00)
[2019-10-21] MEDS: LIDOCAINE 4% PATCH TP SCH (09:00)
[2019-10-21 09:15] LABS: ANION GAP 14.4 mmol/L (8-16); CALCIUM 9.2 mg/dL (8.4-10.2); CARBON DIOXIDE 23 mmol/L (22-29); CHLORIDE 108 mmol/L (98-107); CREATININE, SERUM 0.57 mg/dL (0.57-1.11); EST GLOMERULAR FILTRATION RATE > 60 ML/MIN (60-); GLUCOSE 90 mg/dL (74-118); POTASSIUM 3.4 mmol/L (3.5-5.1); SODIUM 142 mmol/L (136-145)
[2019-10-21 09:16] LABS: BLOOD UREA NITROGEN < 2 mg/dL (7-26); BUN/CREATININE RATIO 4 (6-25)
--- NOTE | 2019-10-21 13:41 | Progress Note ---
DATE: 10/21/2019 Renal Progress Note SUBJECTIVE: The patient is followed for acute onset rhabdomyolysis from which she is recovering. Currently, no nausea, no vomiting, no shortness of breath. OBJECTIVE: VITAL SIGNS: Have been noted and are stable. Blood pressure is 110/60, pulse 81. LUNGS: Clear to auscultation bilaterally. CARDIOVASCULAR: S1, S2. No rub ABDOMEN: Soft, nontender. EXTREMITIES: No edema. LABORATORY DATA: Today are as follows; chemistry, potassium is 3.4, sodium 142, chloride is 108, bicarb 23, BUN is less than 2, creatinine is 0.57. CPK level is 2033, which is improving. IMPRESSION AND PLAN: 1. Acute onset rhabdomyolysis. We will continue IV fluid hydration and also oral hydration. From a renal standpoint, the patient is stable. We will decrease IV fluid rate to 150 mL/h. In the next couple of days if her creatine kinase continues to trend downwards, the patient would be okay to discharge from renal standpoint and continue with oral hydration as an outpatient. 2. Hypertension. Blood pressure currently controlled. 3. Hypokalemia, has been replaced already. Recommend to keep the potassium in the normal range since hypokalemia can perpetuate rhabdomyolysis and can also be a cause for rhabdomyolysis. The patient is already on oral potassium chloride 40 mEq daily. Thank you once again for allowing us to participate in the care of your patient. MD REBA Cassidy/MODL /[id number]
--- NOTE | 2019-10-21 19:16 | NUR ---
REPORT GIVEN TO ONCOMING NURSE, WALKING ROUNDS COMPLETE
[2019-10-22] VITALS (7 sets, daily range): BP systolic 98–137; BP diastolic 56–76
[2019-10-22] MEDS: METRONIDAZOLE 500MG/NS 100ML 100 ML IV SCH ×3 (02:05→17:47)
[2019-10-22] MEDS: HYDROMORPHONE 1MG/1ML INJ IV PRN ×5 (02:21→21:30)
[2019-10-22] MEDS: ONDANSETRON HCL INJ 2MG/ML 2ML 2 MG/ML VIAL IV PRN ×5 (02:21→21:30)
[2019-10-22] MEDS: SODIUM CHLORIDE 0.9% 1000ML 1,000 ML IV SCH ×4 (05:38→22:33)
[2019-10-22 07:24] LABS: ANION GAP 11.6 mmol/L (8-16); BLOOD UREA NITROGEN < 5 mg/dL (7-26); CALCIUM 8.9 mg/dL (8.4-10.2); CARBON DIOXIDE 27 mmol/L (22-29); CHLORIDE 108 mmol/L (98-107); CREATINE KINASE 1726 IU/L (29-168); CREATININE, SERUM 0.58 mg/dL (0.57-1.11); EST GLOMERULAR FILTRATION RATE > 60 ML/MIN (60-); GLUCOSE 89 mg/dL (74-118); POTASSIUM 3.6 mmol/L (3.5-5.1); SODIUM 143 mmol/L (136-145)
[2019-10-22 07:26] LABS: BUN/CREATININE RATIO 9 (6-25)
[2019-10-22] MEDS: FAMOTIDINE 20 MG TAB PO SCH ×2 (07:30→16:49)
[2019-10-22] MEDS: LIDOCAINE 4% PATCH TP SCH (07:56)
[2019-10-22] MEDS: MELOXICAM 7.5 MG TAB PO SCH (07:56)
[2019-10-22] MEDS: POTASSIUM CHLORIDE 20 MEQ TAB CR PO SCH (07:56)
--- NOTE | 2019-10-22 09:13 | NUR ---
IM- progress note O/N see MAR ROS: no cp/sob/dizziness/back pain/N/diarrhea/focal limb weakness/confusion v/s revd PE tired appearing anicteric ns1s2 mod bs soft nd; epigastrium tender. no e/t skin dry n. affect a&ox3; andrew labs/meds revd A/P: 34yoF Acute rhabdomyolysis- IVF Hypokalemia- replace Acute transaminitis- rehydrate and recheck UTI- IV abx SIRS- IVF Hypotension- IVF Epigastrium discomfort- start trial of pepcid. Prop; scd; pepcid DIspo: f/u labs 10-16 check labs. worse; give 3L saline now over 6 hrs, then 200cc per hour; Diarrhea- check c.diff,start flagyl; 10-17 Hypokalemia- replace; cont fluids; C.diff negative; use imodium for diarrhea; f/u CPK. 10-18 CPK improving; advance diet; dilaudid for pain; CPK should improve now that diarrhea has resolved with imodium. If worse, consult nephrology. Pt may have enzyme defect. 10-19 check K and CPK at 4pm; levels improving; cont fluids; 10-20 check labs; d/c benadryl 10-21 CPK improving; cont fluids; Nancy Grijalva MD, PhD.
--- NOTE | 2019-10-22 13:15 | Progress Note ---
DATE: 10/22/2019 Renal Progress Note SUBJECTIVE: Followed for acute kidney injury/rhabdomyolysis. The patient continues to improve symptomatically. Overall, pain in muscles is better. The patient is nonoliguric. Clear urine output. Kidney function has been quite stable with normal creatinine. The patient's CPK levels are trending downward. CPK level today is 1726. The patient's potassium is also better at 3.6. No nausea. No vomiting. No shortness of breath. OBJECTIVE: VITAL SIGNS: Have been noted and stable. LUNGS: Clear to auscultation bilaterally. CARDIOVASCULAR: S1 and S. No rub. ABDOMEN: Soft and nontender. EXTREMITIES: No edema. LABORATORY DATA: CPK 1726, creatinine is 0.58, and potassium 3.6. IMPRESSION AND PLAN: 1. Rhabdomyolysis. Continue IV fluids. We will decrease the rate to 150 mL/h. 2. Hypokalemia has resolved. We will continue potassium 40 mEq daily, especially since hypokalemia can be a cause for rhabdomyolysis as well as perpetuated further. Keeping the potassium within normal range will help her improve more rapidly from the rhabdomyolysis. 3. CPK level is trending downwards. 4. Hypokalemia has been replaced. Continue plan as above. 5. Hypertension. Blood pressure is normal. Continue to monitor. 6. Continue with IV fluids. Decrease the rate to 150 mL/h. Repeat labs in the morning. Thank you once again. MD REBA Cassidy/MODL /[id number]
[2019-10-22] MEDS: PROMETHAZINE 12.5MG/ NACL 0.9% 12.5 MG/50 ML BAG IV PRN (16:00)
[2019-10-23] VITALS (9 sets, daily range): BP systolic 95–136; BP diastolic 57–77
[2019-10-23] MEDS: METRONIDAZOLE 500MG/NS 100ML 100 ML IV SCH ×3 (01:02→17:23)
[2019-10-23] MEDS: HYDROMORPHONE 1MG/1ML INJ IV PRN ×5 (01:22→22:57)
[2019-10-23] MEDS: ONDANSETRON HCL INJ 2MG/ML 2ML 2 MG/ML VIAL IV PRN ×5 (01:35→22:57)
[2019-10-23] MEDS: SODIUM CHLORIDE 0.9% 1000ML 1,000 ML IV SCH ×4 (05:11→21:20)
[2019-10-23 06:19] LABS: ANION GAP 11.7 mmol/L (8-16); BLOOD UREA NITROGEN < 5 mg/dL (7-26); CALCIUM 8.7 mg/dL (8.4-10.2); CARBON DIOXIDE 25 mmol/L (22-29); CHLORIDE 108 mmol/L (98-107); CREATININE, SERUM 0.57 mg/dL (0.57-1.11); EST GLOMERULAR FILTRATION RATE > 60 ML/MIN (60-); GLUCOSE 78 mg/dL (74-118); MAGNESIUM 1.9 MG/DL (1.3-2.1); PHOSPHORUS 3.8 MG/DL (2.3-4.7); POTASSIUM 3.7 mmol/L (3.5-5.1); SODIUM 141 mmol/L (136-145)
[2019-10-23 06:20] LABS: BUN/CREATININE RATIO 9 (6-25)
--- NOTE | 2019-10-23 06:34 | NUR ---
IM- progress note O/N see MAR ROS: no cp/sob/dizziness/back pain/N/diarrhea/focal limb weakness/confusion v/s revd PE tired appearing anicteric ns1s2 mod bs soft nd; epigastrium tender. no e/t skin dry n. affect a&ox3; andrew labs/meds revd A/P: 34yoF Acute rhabdomyolysis- IVF Hypokalemia- replace Acute transaminitis- rehydrate and recheck UTI- IV abx SIRS- IVF Hypotension- IVF Epigastrium discomfort- start trial of pepcid. Prop; scd; pepcid DIspo: f/u labs - check labs. worse; give 3L saline now over 6 hrs, then 200cc per hour; Diarrhea- check c.diff,start flagyl; 10-17 Hypokalemia- replace; cont fluids; C.diff negative; use imodium for diarrhea; f/u CPK. 10-18 CPK improving; advance diet; dilaudid for pain; CPK should improve now that diarrhea has resolved with imodium. If worse, consult nephrology. Pt may have enzyme defect. 10-19 check K and CPK at 4pm; levels improving; cont fluids; 10-20 check labs; d/c benadryl - CPK improving; cont fluids; 10-22 f/u CPK Nancy Grijalva MD, PhD.
--- NOTE | 2019-10-23 07:10 | NUR ---
RCD PT AT BED PT IS ALERT AND ORIENTED PT RESTING ON BED NO SIGNS OF ANY DISTRESS NOTED IV PATENT BY SALINE FLUSH BED LOW AND LOCKED CALL LIGHT IN REACH
[2019-10-23] MEDS: FAMOTIDINE 20 MG TAB PO SCH ×2 (07:30→16:30)
[2019-10-23] MEDS: POTASSIUM CHLORIDE 20 MEQ TAB CR PO SCH (09:00)
[2019-10-23] MEDS: LIDOCAINE 4% PATCH TP SCH (09:00)
--- NOTE | 2019-10-23 09:36 | Progress Note ---
DATE: 10/23/2019 Nephrology Followup Progress Note. SUBJECTIVE: The patient is followed for rhabdomyolysis and hypokalemia. She feels well except for pain in the ear for which she is awaiting a CT scan. She is taking well oral liquids. OBJECTIVE: VITALS: Stable, blood pressure 114/61, heart rate 80 per minute, she is afebrile. NECK: Supple without jugular venous distention. CHEST: Clear to auscultation bilaterally. No wheezing or crepitations. CARDIOVASCULAR: Normal S1, S2 without murmur, rub, or gallop. ABDOMEN: Soft, depressible, nontender. EXTREMITIES: Without pitting edema or cyanosis. LABORATORY DATA: Serum chemistry today showed potassium 3.7, normal creatinine of 0.5, calcium 8.7, and creatine kinase continue to trend down to 1219. IMPRESSION: 1. Rhabdomyolysis, CPK continuing to trend down. Renal function remains preserved. May decrease IV fluid to 100 mL/h as oral intake increases. 2. Hypokalemia, corrected with oral replacement daily. Should remain stable once oral dietary intake is established. Brett Bello MD [facility]/MODL /[id number]
[2019-10-23] MEDS ORDERED: SODIUM CHLORIDE 0.9% 50ML 50 ML ONE (12:17)
[2019-10-23] MEDS ORDERED: IOPAMIDOL 370 MG/ML 200 ML INFUS..BTL INJ ONE (12:17)
--- NOTE | 2019-10-23 12:47 | Diagnostic Imaging Report ---
History: Left ear and facial swelling Comparison studies: Brain MRI of 06/05/2019. Technique: Axial images were obtained through the facial region. Coronal and sagittal images reconstructed from the axial data. Dose modulation, iterative reconstruction, and/or weight based adjustment of the mA/kV was utilized to reduce the radiation dose to as low as reasonably achievable. Radiation dose: Total DLP: 187.43 mGy*cm. Estimated effective dose: DLP x 0.015 Intravenous contrast: 100 cc of Isovue-370. Findings: Limitations: Evaluation of the oral cavity is limited due to artifact from dental amalgam and the patient's braces. Soft tissues: Left periauricular soft tissue swelling with mild reactive changes with subtle fat stranding in the regional left maxillofacial and neck soft tissues. No mass or rim-enhancing fluid collection. Lymph nodes: No enlarged lymph nodes. A few, nonenlarged, nonnecrotic, reactive enhancing left spinal accessory chain lymph nodes are present in the left posterior triangle. Vasculature: Patent bilateral carotid and vertebral arteries and internal jugular veins. Bones: No fractures or lytic or blastic lesions. No erosive changes. Middle ear mastoid cavities: Clear. No erosion along the left external auditory canal or elsewhere within the temporal bones. 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 Mildly degenerated C4-C5 disc and mild multilevel facet arthrosis. Orbits: No abnormalities. Paranasal sinuses: Changes of prior transsphenoidal surgery for prior pituitary adenoma resection. No gross intrasellar or suprasellar mass. Evaluation for residual microadenoma is limited by CT. Small defect present along the anterior sella floor. Nonspecific mucosal thickening present within the bilateral sphenoid sinuses and within a right posterior ethmoid air cell. Small bilateral maxillary retention cysts or polyps present along the bilateral maxillary sinus alveolar recesses. IMPRESSION: 1. Nonspecific left periauricular soft tissue swelling with mild reactive changes in the adjacent left maxillofacial and neck soft tissues compatible with cellulitis. No mass, abscess or underlying osseous abnormality. 2. Changes of prior transsphenoidal surgery for prior pituitary adenoma resection. 3. Mild nonspecific inflammatory changes in the paranasal sinuses. Signed by: Dr. Ishmael Wolff M.D. on 10/23/2019 12:44 PM
--- NOTE | 2019-10-23 18:45 | NUR ---
PT RESTING ON BED BED SIDE REPORT GIVEN TO ONCOMING NURSE
[2019-10-24] VITALS (8 sets, daily range): BP systolic 99–117; BP diastolic 55–83
[2019-10-24] MEDS: METRONIDAZOLE 500MG/NS 100ML 100 ML IV SCH ×3 (02:00→17:03)
[2019-10-24] MEDS: SODIUM CHLORIDE 0.9% 1000ML 1,000 ML IV SCH ×3 (04:00→16:56)
[2019-10-24] MEDS: HYDROMORPHONE 1MG/1ML INJ IV PRN ×3 (04:52→14:57)
[2019-10-24] MEDS: PROMETHAZINE 12.5MG/ NACL 0.9% 12.5 MG/50 ML BAG IV PRN (04:53)
--- NOTE | 2019-10-24 07:11 | NUR ---
IM- progress note O/N see MAR ROS: no cp/sob/dizziness/back pain/N/diarrhea/focal limb weakness/confusion v/s revd PE tired appearing anicteric ns1s2 mod bs soft nd; epigastrium tender. no e/t skin dry n. affect a&ox3; andrew labs/meds revd A/P: 34yoF Acute rhabdomyolysis- IVF Hypokalemia- replace Acute transaminitis- rehydrate and recheck UTI- IV abx SIRS- IVF Hypotension- IVF Epigastrium discomfort- start trial of pepcid. Prop; scd; pepcid DIspo: f/u labs - check labs. worse; give 3L saline now over 6 hrs, then 200cc per hour; Diarrhea- check c.diff,start flagyl; 10-17 Hypokalemia- replace; cont fluids; C.diff negative; use imodium for diarrhea; f/u CPK. 10-18 CPK improving; advance diet; dilaudid for pain; CPK should improve now that diarrhea has resolved with imodium. If worse, consult nephrology. Pt may have enzyme defect. 10-19 check K and CPK at 4pm; levels improving; cont fluids; 10-20 check labs; d/c benadryl 10-21 CPK improving; cont fluids; 10-22 f/u CPK 10-23 CT shows left periauricular edema; check CPK; ENT for ear eval. Nancy Grijalva MD, PhD.
[2019-10-24] MEDS: LIDOCAINE 4% PATCH TP SCH (08:19)
[2019-10-24] MEDS: FAMOTIDINE 20 MG TAB PO SCH ×2 (08:22→15:58)
[2019-10-24] MEDS: POTASSIUM CHLORIDE 20 MEQ TAB CR PO SCH (08:23)
[2019-10-24] MEDS: ONDANSETRON HCL INJ 2MG/ML 2ML 2 MG/ML VIAL IV PRN ×2 (10:25→14:58)
--- NOTE | 2019-10-24 13:22 | Progress Note ---
DATE: 10/24/2019 Nephrology Progress Note. SUBJECTIVE: The patient has no specific symptoms today. CPK down to 600, creatinine remains normal. OBJECTIVE: VITAL SIGNS: Looks comfortable, blood pressure 114/65. Rest of the vital signs are stable. NECK: Without JVP. CHEST: Symmetrical breathing. CARDIOVASCULAR: Unchanged. ABDOMEN: Soft, nondistended. EXTREMITIES: Without pitting edema or cyanosis. LABORATORY DATA: Recent electrolytes, BUN, and creatinine all continue to be normal. ASSESSMENT: 1. Acute rhabdomyolysis, resolving. Renal function continues to remain normal. 2. Would discontinue IV fluids now since patient is taking orally well and her CPK is down in the safe range. PLAN: Discharge soon. We will no longer follow. Brett Bello MD [facility]/MODL /[id number]
--- NOTE | 2019-10-24 13:30 | NUR ---
consult called to Dr. Manriquez, awaiting return call
[2019-10-24] MEDS: CLINDAMYCIN 300MG 50 ML IV SCH ×2 (14:35→20:00)
--- NOTE | 2019-10-24 17:28 | NUR ---
Nutrition Screen Note RD Recommendation for Physician: - Continue GI Soft diet Plan of Care: RD following, monitoring for tolerance and adequacy Nutrition reason for involvement: follow up Primary Diagnose(s): dehydration, intractable N/V PMH: prolactinoma, endometriosis Ht: 61 in Wt: 139.06 lb BMI: 26.3 kg/m2 IBW: [address] Assessment: 10/23: Follow up. Pt sleeping at time of visit, did not wake to greeting. Diet advanced from full liquids to GI Soft, pt tolerating well with 100% meal intake per chart. No GI distress per chart, LBM 10/21. Labs and meds reviewed. Per MD notes acute rhabdomyolysis resolved. Chart reviewed. Will continue to monitor. 10/16: 34 YOF admitted for intractable N/V and dehydration with acute rhabdomyolysis and UTI per MD notes. Pt seen 10/15, late entry as no H&P available in chart or meditech. Pt reports N/V for almost a week with very poor intake x 4 days [employer]. Pt reports nausea and 2 episodes of emesis on 10/15. Pt reports UBW of 138#, no wt loss noted. Currently tolerating CL diet with 75-100% intake since admit. Pt with no questions or concerns at this time. Labs and meds reviewed. Will continue to monitor. Current Diet: GI Soft Malnutrition Evaluation 10/17/19 The patient does not meet criteria for a specified degree of malnutrition at this time. Will re-evaluate at follow-up as appropriate. PO intake: moderate, <50% of meals for > 5 days Wt loss: not wt loss reported, UBW 138# Fat loss: none, ample skinfold thickness (observed 10/15) Muscle loss: none, shoulder round (observed 10/15) No edema, functional status- no changes reported Diet Education Needs Assessment: Diet education not indicated, pt on temporary/transitional diet. Diet tolerance: tolerating po Nutrition Care Level: low Signed: Meenakshi Peralta RD, LD, [facility]
--- NOTE | 2019-10-24 20:44 | Consultation ---
DATE OF CONSULTATION: 10/24/2019 Hospital Consultation HISTORY OF PRESENT ILLNESS: I was kindly asked to see this 34-year-old woman who presents with a "17-year history" of intermittent left facial swelling. She reports previous surgical intervention in 2018, but had a recurrence of the lesion. She initially described it as a "cholesteatoma," but after telling her that the lesion appeared to be more consistent with a branchial cleft cyst and not a cholesteatoma, she remembers being told that the lesion was a branchial cleft cyst. She reports near constant left-sided facial pain and intermittent left-sided facial swelling. She reports being treated with multiple courses of antibiotics, which improved the symptoms. However, it then began to recur. She was concerned because of the IV antibiotic therapy not resolving the swelling in her left face. Subsequent CT scan was obtained, which showed a nonspecific left periauricular soft tissue swelling with mild reactive changes in the adjacent left maxillofacial and neck soft tissues compatible with cellulitis. PAST MEDICAL HISTORY: Noncontributory. PAST SURGICAL HISTORY: From Otolaryngology standpoint, it is pertinent from previous transseptal-transsphenoidal resection of pituitary tumor as well as previous tonsillectomy. On examination, the right parotid was normal, right pinna was normal. Right external auditory canal was unremarkable and the tympanic membrane was normal. The left pinna was normal. Left external auditory canal was moderately tortuous. The visualized portion of the tympanic membrane was unremarkable. There was no postauricular incision noted. There was no evidence of surgery for cholesteatoma. There was swelling in the preauricular area extending below the pinna. There was no areas of fluctuance. There is no palpable cervical adenopathy. Intranasal examination was unremarkable. Oral cavity examination was normal. 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 PLAN: We will refer to [facility] for resection of this unusual and recurrent branchial cleft cyst. MD FRANK Condon/LALO /[id number] REBECCA
[2019-10-25] VITALS: BP 125/88
[2019-10-25] MEDS: CLINDAMYCIN 300MG 50 ML IV SCH ×2 (01:44→08:39)
[2019-10-25] MEDS: METRONIDAZOLE 500MG/NS 100ML 100 ML IV SCH ×2 (02:00→10:36)
[2019-10-25] MEDS: HYDROMORPHONE 1MG/1ML INJ IV PRN ×2 (02:20→08:40)
[2019-10-25] MEDS: ONDANSETRON HCL INJ 2MG/ML 2ML 2 MG/ML VIAL IV PRN (02:40)
[2019-10-25 04:00] VITALS: BP 113/76
[2019-10-25 05:23] LABS: BASOPHILS % 0.5 % (0.0-1.0); EOSINOPHILS # (AUTO) 0.7 (0.0-0.4); EOSINOPHILS % 9.3 % (0.0-6.0); HEMOGLOBIN 12.1 g/dL (12.0-16.0); LYMPHOCYTES # (AUTO) 1.9 (1.0-3.2); MEAN CORPUSCULAR HEMOGLOBIN 30.9 pg (28-32); MEAN CORPUSCULAR HGB CONC 31.8 g/dL (31-35); MEAN CORPUSCULAR VOLUME 96.9 fL (81-99); MONOCYTES # (AUTO) 0.8 (0.2-0.8); MONOCYTES % 10.2 % (4.4-11.3); NEUTROPHILS # (AUTO) 4.2 (2.1-6.9); NEUTROPHILS % 54.7 % (38.7-80.0); PLATELET COUNT 202 x10e3/uL (140-360); RED BLOOD COUNT 3.92 x10e6/uL (3.6-5.1); RED CELL DISTRIBUTION WIDTH 12.9 % (11.7-14.4)
[2019-10-25 05:41] LABS: ANION GAP 10.6 mmol/L (8-16); BLOOD UREA NITROGEN < 5 mg/dL (7-26); CALCIUM 8.6 mg/dL (8.4-10.2); CARBON DIOXIDE 25 mmol/L (22-29); CHLORIDE 108 mmol/L (98-107); CREATININE, SERUM 0.58 mg/dL (0.57-1.11); EST GLOMERULAR FILTRATION RATE > 60 ML/MIN (60-); GLUCOSE 84 mg/dL (74-118); POTASSIUM 3.6 mmol/L (3.5-5.1); SODIUM 140 mmol/L (136-145)
[2019-10-25 05:44] LABS: BUN/CREATININE RATIO 9 (6-25)
[2019-10-25] MEDS: SODIUM CHLORIDE 0.9% 1000ML 1,000 ML IV SCH ×3 (06:05→10:35)
[2019-10-25 06:39] LABS: MAGNESIUM 1.7 MG/DL (1.3-2.1); PHOSPHORUS 4.2 MG/DL (2.3-4.7)
--- NOTE | 2019-10-25 07:05 | NUR ---
BEDSIDE SHIFT REPORT RECEIVED FROM PM NURSE, PT IN STABLE CONDITION. WILL CONTINUE TO MONITOR.
[2019-10-25 07:56] VITALS: BP 107/57
[2019-10-25 08:19] VITALS: BP 107/57
[2019-10-25] MEDS: FAMOTIDINE 20 MG TAB PO SCH (08:31)
[2019-10-25] MEDS: POTASSIUM CHLORIDE 20 MEQ TAB CR PO SCH (08:32)
[2019-10-25] MEDS: LIDOCAINE 4% PATCH TP SCH (08:39)
[2019-10-25] MEDS ORDERED: CLINDAMYCIN HC300 MG PO (12:57)
[2019-10-25] MEDS ORDERED: ULTRAM50 MG PO (12:57)
[2019-10-25] MEDS ORDERED: FLAGYL500 MG PO (12:57)
--- NOTE | 2019-10-25 13:00 | NUR ---
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 Secondary Dx: Prop; scd; pepcid DIspo: f/u labs - check labs. worse; give 3L saline now over 6 hrs, then 200cc per hour; Diarrhea- check c.diff,start flagyl; 10-17 Hypokalemia- replace; cont fluids; C.diff negative; use imodium for diarrhea; f/u CPK. 10-18 CPK improving; advance diet; dilaudid for pain; CPK should improve now that diarrhea has resolved with imodium. If worse, consult nephrology. Pt may have enzyme defect. 10-19 check K and CPK at 4pm; levels improving; cont fluids; 10-20 check labs; d/c benadryl 10-21 CPK improving; cont fluids; 10-22 f/u CPK 10-23 CT shows left periauricular edema; check CPK; ENT for ear eval. d/c home stable f/u pcp 2-4 days Drink 10 glasses water daily See in 3-5 days; d/c>35mins Nancy Grijalva MD, PhD.
[2019-10-25] MEDS ORDERED: ZOFRAN4 MG PO (13:01)
[2019-10-25 14:18] VITALS: BP 111/56
== END 2019-10-25 15:27 | disposition home or self-care (01) | DRG 558 ==
LOC: ER 10:41 → ERHOLD 12:39 → MED/SURG2 14:58 → OBSVTOIN 10-17 12:45
PROVIDERS: ADMIT Internal Medicine; ATTEND Internal Medicine
DX: M62.82 Rhabdomyolysis (principal); N39.0 Urinary tract infection, site not specified; R65.10 Systemic inflammatory response syndrome (SIRS) of non-infectious origin without acute organ dysfunction; N17.9 Acute kidney failure, unspecified; E87.6 Hypokalemia; R74.0 Nonspecific elevation of levels of transaminase and lactic acid dehydrogenase [LDH]; Q18.0 Sinus, fistula and cyst of branchial cleft; E86.0 Dehydration; I10 Essential (primary) hypertension
CPT/HCPCS: 36415; 70487; 74177; 80048; 80053; 80307; 80320; 81001; 81003; 81025; 82550; 82553; 83690; 83735; 84100; 84132; 84146; 84484; 85025; 87493; 93005; 96360; 96361; 99284; G0378; J0500; J1170; J1630; J1885; J2405; J2550; J3480; J7030; Q9967

== ENCOUNTER 2024-08-31 17:05 | Emergency (ER) | payer BC ==
[~2024-08-31] VITALS: Ht 307.3 cm; Wt 59.9 kg
[~2024-08-31 17:05] MED LIST changes: +ACETAMINOPHEN325 M1 PO; +BENADRYL25 M1 PO; +CLINDAMYCIN HC300 MG PO; +Docusate Sodium PO; +FLAGYL500 MG PO; +FLONASE ALLERG9.9 ML; -GADOBENATE DIMEGLUMINE 1 ML IV ONE; +METRONIDAZOLE500 MG PO; +PANTOPRAZOLE SO40 MG PO; +REGLAN5 MG PO; +SIMETHICONE80 MG PO; +SODIUM BICARBO650 MG PO; -SODIUM CHLORIDE 0.9% 50ML 50 ML ONE; +Sucralfate Susp 1GM/10ML NG; +ULTRAM 50MG50 MG PO; +ULTRAM50 MG PO; +ZOFRAN4 MG PO
[2024-08-31 17:10] VITALS: TEMP 98.9
[2024-08-31 17:46] LABS: BASOPHILS # (AUTO) 0.1 (0.0-0.1); BASOPHILS % 0.7 % (0.0-1.0); EOSINOPHILS # (AUTO) 0.7 (0.0-0.4); EOSINOPHILS % 5.9 % (0.0-6.0); HEMATOCRIT 43.1 % (34.2-44.1); HEMOGLOBIN 14.1 g/dL (12.0-16.0); LYMPHOCYTES # (AUTO) 3.2 (1.0-3.2); LYMPHOCYTES % 28.9 % (18.0-39.1); MEAN CORPUSCULAR HEMOGLOBIN 30.3 pg (28-32); MEAN CORPUSCULAR HGB CONC 32.7 g/dL (31-35); MEAN CORPUSCULAR VOLUME 92.7 fL (81-99); MONOCYTES # (AUTO) 0.7 (0.2-0.8); MONOCYTES % 6.2 % (4.4-11.3); NEUTROPHILS # (AUTO) 6.4 (2.1-6.9); NEUTROPHILS % 58.1 % (38.7-80.0); PLATELET COUNT 265 x10e3/uL (140-360); RED BLOOD COUNT 4.65 x10e6/uL (3.6-5.1); RED CELL DISTRIBUTION WIDTH 12.3 % (11.7-14.4)
[2024-08-31] MEDS: ONDANSETRON HCL INJ 2MG/ML 2ML 2 MG/ML VIAL IV STA (17:51)
[2024-08-31] MEDS: SODIUM CHLORIDE 0.9% 1000ML 1,000 ML IV STA (17:51)
[2024-08-31] MEDS: FAMOTIDINE 20 MG/2 ML VIAL IV STA (17:58)
[2024-08-31] MEDS ORDERED: VENTOLIN HFA18 GM INH (18:07)
[2024-08-31] MEDS ORDERED: BREYNA 160-4.10.3 GM INH (18:07)
[2024-08-31 18:13] LABS: ALBUMIN 4.1 g/dL (3.5-5.0); ALBUMIN/GLOBULIN RATIO 1.4 (0.8-2.0); ANION GAP 17.6 mmol/L (8-16); BILIRUBIN,TOTAL 0.6 mg/dL (0.2-1.2); CALCIUM 8.9 mg/dL (8.4-10.2); CREATININE, SERUM 0.65 mg/dL (0.57-1.11); POTASSIUM 3.6 mmol/L (3.5-5.1)
[2024-08-31 19:05] LABS: AMPHETAMINES SCREEN,URINE NEGATIVE (NEGATIVE); BENZODIAZEPINES SCREEN,URINE NEGATIVE (NEGATIVE); CANNABINOIDS SCREEN,URINE POSITIVE (NEGATIVE); COCAINE SCREEN,URINE NEGATIVE (NEGATIVE); METHADONE SCREEN, URINE NEGATIVE (NEGATIVE); OPIATES SCREEN,URINE NEGATIVE (NEGATIVE); PHENCYCLIDINE SCREEN,URINE NEGATIVE (NEGATIVE)
[2024-08-31] MEDS ORDERED: IOPAMIDOL 370 MG/ML 100 ML INFUS..BTL INJ ONE (19:09)
[2024-08-31 19:17] LABS: CLARITY,URINE HAZY (CLEAR); COLOR,URINE YELLOW (YELLOW); LEUKOCYTE ESTERASE ,URINE NEGATIVE (NEGATIVE); NITRITE,URINE NEGATIVE (NEGATIVE); PH,URINE 6 (5 - 7); PROTEIN,URINE DIPSTICK NEGATIVE (NEGATIVE)
[2024-08-31 19:18] LABS: BILIRUBIN,URINE NEGATIVE (NEGATIVE); GLUCOSE, URINE NEGATIVE (NEGATIVE); KETONES,URINE 1+ (NEGATIVE); URINE UROBILINOGEN 0.2 mg/dL (0.2 - 1)
[2024-08-31 19:21] LABS: BACTERIA,URINE MODERATE /HPF; EPITHELIAL CELLS,URINE MODERATE /LPF; RBC,URINE 0-5 /HPF (0-5); WBC,URINE (MAN) 0-5 /HPF (0-5)
[2024-08-31 21:45] VITALS: PULSE 70; RESP 18
[2024-08-31] MEDS ORDERED: ONDANSETRON ODT4 MG SL (23:48)
[2024-08-31] MEDS ORDERED: PANTOPRAZOLE SO40 MG PO (23:48)
[2024-09-01 00:42] VITALS: BP 129/75; PULSE 78; RESP 17; TEMP 98.3; O2SAT 98
== END 2024-09-01 00:10 | disposition home or self-care (01) ==
LOC: ER 17:20
DX: R10.12 Left upper quadrant pain (principal); R74.8 Abnormal levels of other serum enzymes; R11.2 Nausea with vomiting, unspecified; K57.90 Diverticulosis of intestine, part unspecified, without perforation or abscess without bleeding; N80.9 Endometriosis, unspecified; D25.9 Leiomyoma of uterus, unspecified
CPT/HCPCS: 36415; 74177; 76705; 80053; 80307; 81001; 83690; 84702; 85025; 99284; J2405; J7030; Q9967